=== PATIENT | female | born 1925 | race Caucasian/White ===

== ENCOUNTER → 2017-01-03 | Outpatient (CLI) | payer OTHER, BC ==
[~2017-01-03] MED LIST: ASCA500 PO; ASCO500T16 PO; ASPI81TA28 PO; ATEN-173 PO; B-COTAB18 PO; BNC40 PO; BROM0.07 OPB; BROM0.07 OPR; CALC-393 PO; CALCTAB5 PO; CHOL1000 PO; ELQ25 PO; FURO20TA PO; HYDR12.55 PO; HYDR12.56 PO; LEVA1.255 INH; LEVO-18 PO; LSX/40 PO; LSX40 PO; LVQ750 PO; LXP10 PO; MULT-663 PO; OMEG10007 PO; OMEG120013 PO; OXGN; POLYSOL OPL; POTA10CA28 PO; POTA10TA30 PO; PRED10TA PO; PRED1SUS17 OPR; PRED1SUS3 OPR; RIVA1.5T PO; RIVA1TAB PO; SODI2SOL; SODI5OIN4 OPR; SODI5SOL4 OPR; TIMO0.2527 OPB; TMPXEOPS OPB; TPRSR100 PO; TPRSR50 PO; TRAV0.00 OPL; VTMD400 PO
--- NOTE | 2017-01-03 15:03 | MAMMOGRAPHY REPORT ---
UNILATERAL RIGHT DIGITAL DIAGNOSTIC MAMMOGRAM WITH CAD: 01/03/2017 CLINICAL HISTORY: Short interval follow-up of right breast calcifications. TECHNIQUE: Current study was also evaluated with a Computer Aided Detection (CAD) system. Right CC and MLO views were obtained. COMPARISON: Comparison is made to exams dated: 08/07/2016 mammogram, 07/12/2016 mammogram, 05/24/2015 mammogram, 03/16/2014 mammogram, 03/05/2013 mammogram, and 03/04/2012 mammogram - [facility]. BREAST COMPOSITION: The tissue of the right breast is heterogeneously dense, which may obscure smal l masses. FINDINGS: The exam is somewhat limited due to difficulties with patient positioning due to her kypho scoliosis. Again noted is a small 4 mm cluster of amorphous calcifications in the right upper inner quadrant. The calcifications are not significantly changed compared to the 07/12/2016 exam, and ar e therefore probably benign given 6 months of stability. There remainder of the right breast is stable compared to prior exams, without suspicious masses, ca lcifications, or areas of architectural distortion noted. Status post left mastectomy. IMPRESSION: ACR-BI-RADS CATEGORY 3: PROBABLY BENIGN Small cluster of calcifications in the right upper inner quadrant is stable compared to the June 2016 exam, and is probably benign. Recommend follow-up diagnostic mammograms of the right breast in 6 months to confirm longer stability. The patient has been verbally notified of the results. Approximately 10% of breast cancers are not detected with mammography. A negative mammographic repor t should not delay biopsy if a clinically suggestive mass is present. Elli Hyatt M.D. ah/:01/03/2017 14:34:13 Attending Technologist: Pranav Minor RT(R)(M), [facility] [employer] Analyst: Imani Patel RT(R)(M), [facility] letter sent: Follow Up Recommended 3 BI-RADS Code: ACR-BI-RADS Category 3: Probably Benign
== END ==
LOC: C.MAMM 14:06
PROVIDERS: ATTEND Family Medicine
DX: Z09 Encounter for follow-up examination after completed treatment for conditions other than malignant neoplasm (principal); R92.1 Mammographic calcification found on diagnostic imaging of breast

== ENCOUNTER 2017-02-09 15:26 | Inpatient (IN) | payer OTHER, BC ==
[~2017-02-09] VITALS: Ht 154.9 cm; Wt 46.9 kg
[~2017-02-09 15:26] MED LIST changes: -ASCA500 PO; -B-COTAB18 PO; -BROM0.07 OPB; -CALC-393 PO; -ELQ25 PO; -FURO20TA PO; -HYDR12.55 PO; -LEVA1.255 INH; -LEVO-18 PO; -LSX/40 PO; -LSX40 PO; -LVQ750 PO; -LXP10 PO; -MULT-663 PO; -OMEG120013 PO; -OXGN; -POLYSOL OPL; -POTA10CA28 PO; -POTA10TA30 PO; -PRED10TA PO; -PRED1SUS17 OPR; -PRED1SUS3 OPR; -RIVA1.5T PO; -RIVA1TAB PO; -SODI2SOL; -SODI5SOL4 OPR; -TMPXEOPS OPB; -TPRSR100 PO; -TPRSR50 PO; -TRAV0.00 OPL; -VTMD400 PO
[2017-02-09 16:06] LABS: BASO % 0.4 %; BASO ABS # 0.03 K/uL (0-0.2); COMPLETE YES; EOS % 1.2 %; HEMATOCRIT 36.7 % (37-47); IG% 0.1 %; LYMPH % 19.1 %; LYMPH ABS # 1.44 K/uL (1.2-3.4); MEAN CELL VOLUME 93.1 fL (80-100); MEAN CORPUSCULAR HGB CONC 33.2 g/dl (32-36); MEAN PLATELET VOLUME 9.9 fL (7.4-10.4); MONO % 9.9 %; NEUT % 69.3 %; PLATELET COUNT 218 K/uL (130-400); RED BLOOD COUNT 3.94 M/uL (4.2-5.4); WHITE BLOOD COUNT 7.55 K/uL (4.8-10.8)
[2017-02-09 16:16] LABS: INR 1.1 (0.9-1.1); PROTHROMBIN TIME (PATIENT) 11.9 SECONDS (9.0-12.0)
[2017-02-09 16:23] LABS: ALT/SGPT 45 U/L (12-78); AST/SGOT 48 U/L (15-37); BLOOD UREA NITROGEN 17 mg/dl (7-18); BUN/CREATININE RATIO 25.4 (10-20); CALCIUM 9.2 mg/dl (8.5-10.1); CARBON DIOXIDE 32 mmol/L (21-32); CHLORIDE 98 mmol/L (98-107); CREATININE 0.67 mg/dl (0.60-1.20); GLUCOSE 112 mg/dl (70-99); POTASSIUM 3.8 mmol/L (3.5-5.1); SODIUM 137 mmol/L (136-145)
--- NOTE | 2017-02-09 16:23 | DIAGNOSTIC IMAGING REPORT ---
Venous Doppler right leg RIGHT VENOUS DOPP LOWER EXT UNILAT CLINICAL HISTORY: EVALUATE FOR DVT Right pain. Edema. TECHNIQUE: Venous Doppler COMPARISON STUDY: None FINDINGS: Normal study IMPRESSION: Normal study Electronically signed by: Jay Zambrano M.D. 02/09/2017 4:22 PM Dictated Date/Time: 02/09/2017 4:22 PM
[2017-02-09 16:28] LABS: ALB/GLOB RATIO 0.8 (0.9-2); ALKALINE PHOSPHATASE 116 U/L (45-117)
[2017-02-09] MEDS ORDERED: FUROSEMIDE 20 MG TAB PO STA (16:36)
[2017-02-09] MEDS ORDERED: FUROSEMIDE 40 MG/4 ML VIAL IV STA (16:48)
[2017-02-09] MEDS ORDERED: HYDR12.55 PO (16:53)
[2017-02-09] MEDS ORDERED: SODI2SOL (16:53)
[2017-02-09] MEDS ORDERED: CALC-393 PO (16:53)
[2017-02-09] MEDS ORDERED: TRAV0.00 OPL (16:54)
[2017-02-09] MEDS ORDERED: TMPXEOPS OPB (16:54)
[2017-02-09] MEDS ORDERED: PRED1SUS17 OPR (16:54)
--- NOTE | 2017-02-09 17:03 | DIAGNOSTIC IMAGING REPORT ---
CHEST ONE VIEW PORTABLE CLINICAL HISTORY: SOB dyspnea COMPARISON STUDY: CT chest 10/06/2007 FINDINGS: Fibrotic change throughout both hemithoraces. Mild cardiomegaly. Diaphragms are smooth. Calcifications are sharp. IMPRESSION: Interstitial and chronic fibrotic change throughout both hemithoraces. Mild stable cardiomegaly. Electronically signed by: Jay Zambrano M.D. 02/09/2017 5:02 PM Dictated Date/Time: 02/09/2017 5:01 PM
--- NOTE | 2017-02-09 18:07 | EMERGENCY ROOM VISIT NOTE ---
History Report prepared by Taylor: Cabrera Smith Under the Supervision of: Dr. Marek Pruett M.D. First contact with patient: 15:39 Chief Complaint: EDEMA TO EXTREMITY Stated Complaint: FLUID IN LEGS History of Present Illness The patient is a 89 year old female who presents to the Emergency Room with complaints of bilateral leg edema that began yesterday. She is not in any pain at the moment. Today, she was at a [facility] clinic when her PCP referred her to the ER for a possible blood clot in her lower extremity. She has had bilateral leg edema in the past, but not this severe. She is currently taking water pills, and she did not miss any dosages. Patient denies LOC, headache, fevers, chills, diaphoresis, visual changes, neck pain, chest pain, breathing difficulties, nausea, vomiting, abdominal pain, back pain, melena, hematochezia , urinary symptoms, numbness, weakness, lymphadenopathy, rash, or other complaints. She has bloating in her abdomen and nausea. Source of History: patient Onset: yesterday Position: leg (bilateral) Symptom Intensity: moderate Quality: other (Edema) Timing: constant Associated Symptoms: + abdominal pain (Bloating), + nausea Review of Systems See HPI for pertinent positives and negatives. A total of ten systems were reviewed and were otherwise negative. Past Medical & Surgical Medical Problems: (1) CHF (congestive heart failure) (2) Hypertension (3) MVP (mitral valve prolapse) Family History Hypertension Social History Smoking Status: Former Smoker Alcohol Use: none Drug Use: none Marital Status: Housing Status: lives with family Occupation Status: retired Current/Historical Medications Scheduled Ascorbic Acid (Ascorbic Acid), 500 MG PO DAILY Aspirin (Aspirin Ec), 81 MG PO DAILY Atenolol (Tenormin), 25 MG PO TID Bromfenac Sodium (Ophth) (Prolensa), 1 DROP OPR DAILY Calcium Carbonate (Calcium), 600 MG PO DAILY Cholecalciferol (Vitamin D3), 1,000 UNITS PO DAILY Fish Oil ([place]-3), 1,200 MG PO DAILY Hydrochlorothiazide (Hydrochlorothiazide), 2 TAB PO DAILY Olmesartan Medoxomil (Benicar), 1 TAB PO DAILY Prednisolone Acetate (Ophth) (Prednisolone Acetate), 1 DROP OPR BID Sodium Chloride Oph (Michelle 128 Oph), 1 APPLN OPR QID Timolol Maleate (Timolol Gfs 0.5% (Generic For Timoptic-Xe)), 1 DROP OPB BID Scheduled PRN Travoprost (Travatan Z), 1 DROPS OPL HS PRN for Pain Miscellaneous Medications Sodium Chloride Hypertonic (Michelle 128) Allergies Coded Allergies: Penicillins (Verified Allergy, Unknown, 05/20/16) Physical Exam Vital Signs Date Time Temp Pulse Resp B/P Pulse Ox O2 Delivery O2 Flow Rate FiO2 02/09/17 17:33 90 22 156/95 96 Nasal Cannula 2.0 02/09/17 16:57 80 02/09/17 16:56 93 Nasal Cannula 3.0 02/09/17 16:36 82 18 119/81 84 Room Air 02/09/17 15:58 Room Air 02/09/17 15:29 36.4 85 22 146/96 Room Air Physical Exam GENERAL: Awake, alert, well-appearing, in no distress HENT: Normocephalic, atraumatic. Oropharynx unremarkable. EYES: Normal conjunctiva. Sclera non-icteric. NECK: Supple. No nuchal rigidity. FROM. No JVD. RESPIRATORY: A few crackles at the bases, otherwise clear bilaterally. CARDIAC: Regular rate, normal rhythm. Extremities warm and well perfused. Pulses equal. ABDOMEN: Soft, non-distended. No tenderness to palpation. No rebound or guarding. No masses. RECTAL: Deferred. MUSCULOSKELETAL: Chest examination reveals no tenderness. The back is kyphotic on inspection. There is no CVA tenderness to palpation. No joint edema. LOWER EXTREMITIES: Right calf is slightly bigger than left. No tenderness. 2+ edema on the left and 3+ edema on the right. No discoloration. NEURO: Normal sensorium. No sensory or motor deficits noted. SKIN: No rash or jaundice noted. Medical Decision & Procedures ER Provider Diagnostic Interpretation: Radiology results as stated below per my review and radiologist interpretation: Venous Doppler right leg RIGHT VENOUS DOPP LOWER EXT UNILAT CLINICAL HISTORY: EVALUATE FOR DVT Right pain. Edema. TECHNIQUE: Venous Doppler COMPARISON STUDY: None FINDINGS: Normal study IMPRESSION: Normal study. Electronically signed by: Jay Zambrano M.D. 02/09/2017 4:22 PM Dictated Date/Time: 02/09/2017 4:22 PM CHEST ONE VIEW PORTABLE CLINICAL HISTORY: SOB dyspnea COMPARISON STUDY: CT chest 10/06/2007 FINDINGS: Fibrotic change throughout both hemithoraces. Mild cardiomegaly. Diaphragms are smooth. Calcifications are sharp. IMPRESSION: Interstitial and chronic fibrotic change throughout both hemithoraces. Mild stable cardiomegaly. Electronically signed by: Jay Zambrano M.D. 02/09/2017 5:02 PM Dictated Date/Time: 02/09/2017 5:01 PM Laboratory Results 02/09/17 15:50 Red Blood Count 3.94, Mean Corpuscular Volume 93.1, Mean Corpuscular Hemoglobin 31.0, Mean Corpuscular Hemoglobin Concent 33.2, Mean Platelet Volume 9.9, Neutrophils (%) (Auto) 69.3, Lymphocytes (%) (Auto) 19.1, Monocytes (%) (Auto) 9.9, Eosinophils (%) (Auto) 1.2, Basophils (%) (Auto) 0.4, Neutrophils # (Auto) 5.23, Lymphocytes # (Auto) 1.44, Monocytes # (Auto) 0.75, Eosinophils # (Auto) 0.09, Basophils # (Auto) 0.03 02/09/17 15:50 Test 02/09/17 15:50 White Blood Count 7.55 K/uL (4.8-10.8) Red Blood Count 3.94 M/uL (4.2-5.4) Hemoglobin 12.2 g/dL (12.0-16.0) Hematocrit 36.7 % (37-47) Mean Corpuscular Volume 93.1 fL (80-100) Mean Corpuscular Hemoglobin 31.0 pg (25-34) Mean Corpuscular Hemoglobin Concent 33.2 g/dl (32-36) Platelet Count 218 K/uL (130-400) Mean Platelet Volume 9.9 fL (7.4-10.4) Neutrophils (%) (Auto) 69.3 % Lymphocytes (%) (Auto) 19.1 % Monocytes (%) (Auto) 9.9 % Eosinophils (%) (Auto) 1.2 % Basophils (%) (Auto) 0.4 % Neutrophils # (Auto) 5.23 K/uL (1.4-6.5) Lymphocytes # (Auto) 1.44 K/uL (1.2-3.4) Monocytes # (Auto) 0.75 K/uL (0.11-0.59) Eosinophils # (Auto) 0.09 K/uL (0-0.5) Basophils # (Auto) 0.03 K/uL (0-0.2) RDW Standard Deviation 51.4 fL (36.4-46.3) RDW Coefficient of Variation 15.1 % (11.5-14.5) Immature Granulocyte % (Auto) 0.1 % Immature Granulocyte # (Auto) 0.01 K/uL (0.00-0.02) Prothrombin Time 11.9 SECONDS (9.0-12.0) Prothromb Time International Ratio 1.1 (0.9-1.1) Activated Partial Thromboplast Time 25.0 SECONDS (21.0-31.0) Partial Thromboplastin Ratio 1.0 Anion Gap 7.0 mmol/L (3-11) Est Creatinine Clear Calc Drug Dose 42.9 ml/min Estimated GFR () 90.3 Estimated GFR (Non- 77.9 BUN/Creatinine Ratio 25.4 (10-20) Calcium Level 9.2 mg/dl (8.5-10.1) Total Bilirubin 2.1 mg/dl (0.2-1) Aspartate Amino Transf (AST/SGOT) 48 U/L (15-37) Alanine Aminotransferase (ALT/SGPT) 45 U/L (12-78) Alkaline Phosphatase 116 U/L (45-117) Troponin I < 0.015 ng/ml (0-0.045) Pro-B-Type Natriuretic Peptide 3611 pg/ml (0-1800) Total Protein 7.4 gm/dl (6.4-8.2) Albumin 3.3 gm/dl (3.4-5.0) Globulin 4.1 gm/dl (2.5-4.0) Albumin/Globulin Ratio 0.8 (0.9-2) Laboratory results reviewed by me Medications Administered Medications (Trade) Dose Ordered Sig/Mainor Route Start Time Stop Time Status Last Admin Dose Admin Furosemide (Lasix Inj) 40 mg NOW STAT IV 02/09/17 16:48 02/09/17 16:50 DC 02/09/17 17:07 40 MG ED Course 1539: The patient was evaluated in room C3. A complete history and physical exam was performed. 1636: Ordered Lasix Tab 40 mg PO 1648: Ordered Lasix Inj 40 mg IV 1650: I was informed that the patient is now hypoxic. We will be paging for further management. 1724: Upon reexamination, the patient was resting. I discussed the test results and treatment plan with her. The patient will be evaluated by Cathie Oviedo, for further management. Medical Decision Triage Nursing notes reviewed. The patient's presentation and history were concerning for leg swelling. Etiologies such as DVT, joint effusion, infection, trauma, muscular, lymphedema , idiopathic, CHF, as well as others were entertained. The patient had blood work and imaging ordered. She had no DVT. The patient has an elevated BNP. The patient had unremarkable CBC and chemistry panel. She was found to have hypoxia and this responded well to nasal cannula oxygen. Initially she was going to be placed on oral Lasix however because of the hypoxia and oxygen requirement she was given 40 mg of IV Lasix. The patient appears to be dealing with CHF. She will need further evaluation and management in the hospital. I did discuss this with the patient and family. [facility] The patient was evaluated in the Emergency Room for further management. The chart was completed utilizing [employer] Speech voice recognition software. Grammatical errors, random word insertions, pronoun errors, and incomplete sentences are an occasional consequence of this system due to software limitations, ambient noise, and hardware issues. Any formal questions or concerns about the content, text, or information contained within the body of this dictation should be directly addressed to the physician for clarification. Consults Time Called: 1700 Consulting Physician: Cathie Shields Ivelisse Returned Call: 1724 She will be evaluating the patient for further management and care. Impression Primary Impression: CHF (congestive heart failure) Additional Impressions: Lower extremity edema Hypoxia Scribe Attestation The scribe's documentation has been prepared under my direction and personally reviewed by me in its entirety. I confirm that the note above accurately reflects all work, treatment, procedures, and medical decision making performed by me. Departure Information Dispostion Being Evaluated By Hospitalist Referrals Maya Cottrell DO (PCP) Patient Instructions [facility] Problem Qualifiers
[2017-02-09] MEDS ORDERED: ONDANSETRON INJ 2 MG/ML 2 ML VIAL IV PRN (18:15)
[2017-02-09] MEDS ORDERED: ACETAMINOPHEN 325 MG TAB PO PRN (18:15)
--- NOTE | 2017-02-09 18:39 | History and Physical ---
History & Physical Date & Time of Service: February 09, 2017 at 18:14 Chief Complaint: Fluid In Legs Primary Care Physician: Maya Cottrell DO History of Present Illness Source: patient, clinic records, hospital records Patient seen and examined. 89 year old female with PMHx of HTN, GERD, SVT, Mitral Regurgitation, peripheral edema, and h/o breast CA presents to the ED complaining of worsening leg edema x 1 week. Patient reports she chronically has some edema to her BLE, but it has recently gotten worsen. She saw Dr. Flores at [facility] weekend coverage today and he was concerned that the RLE was 4mm larger than the left. With her history of breast CA he was concerned for DVT and referred patient to the ED for further evaluation. Patient also reports a cough with some phlegm. She states she feels a little bloated and has had some nausea off and on. She states she chronically has some hear "fluttering " at night and that is what she takes atenolol for. She denies fevers, chills, chest pain, SOB, vomiting, diarrhea, dysuria, calf pain . She follows with Manuel Marin of cardiology. She does not use oxygen at home. She has never been diagnosed with CHF. In the ED patient is hypoxic on RA. RLE dopper US is negative for DVT. BNP is 3611. CXR is without acute changes. She is placed on supplemental oxygen and received 40mg IV lasix. She is resting comfortably. She will be admitted for further workup and treatment. Past Medical/Surgical History Chronic and Reloved Medical Problems: (1) Breast CA, history of Status: Chronic (3) GERD (gastroesophageal reflux disease) Status: Chronic (4) Glaucoma Status: Chronic (5) Hypertension Status: Chronic (6) Mitral regurgitation Status: Chronic (7) MVP (mitral valve prolapse) Status: Chronic (8) SVT (supraventricular tachycardia) Status: Chronic Surgical Problems: (1) H/O elbow surgery Status: Chronic (2) H/O mastectomy Status: Chronic (3) History of trabeculectomy Status: Chronic Family History Hypertension Social History Smoking Status: Former Smoker Alcohol Use: none Drug Use: none Marital Status: Housing status: lives with family Occupational Status: retired Multi-Drug Resistant Organisms History of MDRO: No Allergies Coded Allergies: Penicillins (Verified Allergy, Unknown, 05/20/16) Home Medications Scheduled Ascorbic Acid (Ascorbic Acid), 500 MG PO DAILY Aspirin (Aspirin Ec), 81 MG PO DAILY Atenolol (Tenormin), 25 MG PO TID Bromfenac Sodium (Ophth) (Prolensa), 1 DROP OPR DAILY Calcium Carbonate (Calcium), 600 MG PO DAILY Cholecalciferol (Vitamin D3), 1,000 UNITS PO DAILY Fish Oil ([place]-3), 1,200 MG PO DAILY Hydrochlorothiazide (Hydrochlorothiazide), 2 TAB PO DAILY Olmesartan Medoxomil (Benicar), 1 TAB PO DAILY Prednisolone Acetate (Ophth) (Prednisolone Acetate), 1 DROP OPR QID Sodium Chloride Oph (Michelle 128 Oph), 1 APPLN OPR QID Timolol Maleate (Timolol Gfs 0.5% (Generic For Timoptic-Xe)), 1 DROP OPB BID Scheduled PRN Travoprost (Travatan Z), 1 DROPS OPL HS PRN for Pain Miscellaneous Medications Sodium Chloride Hypertonic (Michelle 128) Review of Systems Constitutional: No chills, No fever, No weakness Eyes: No worsening of vision ENT: No nasal symptoms Respiratory: + cough, No shortness of breath Cardiovascular: + edema, + palpitations, No chest pain Abdomen: + nausea, No constipation, No diarrhea, No pain, No vomiting Musculoskeletal: + swelling, No calf pain Genitourinary - Female: No dysuria Neurologic: No numbness/tingling, No vertigo Psychiatric: No anxiety Endocrine: No excessive thirst, No fatigue Hematologic / Lymphatic: No abnormal bleeding/bruising, No clotting problems Integumentary: No itch, No rash Allergic / Immunologic: No environmental allergies Physical Exam Vital Signs Date Time Temp Pulse Resp B/P Pulse Ox O2 Delivery O2 Flow Rate FiO2 02/09/17 17:33 90 22 156/95 96 Nasal Cannula 2.0 02/09/17 16:57 80 02/09/17 16:56 93 Nasal Cannula 3.0 02/09/17 16:36 82 18 119/81 84 Room Air 02/09/17 15:58 Room Air 02/09/17 15:29 36.4 85 22 146/96 Room Air General Appearance: + pertinent finding (Very pleasant elderly frail appearing 89 year old female lying in bed in NAD ) Head: normocephalic, atraumatic Eyes: PERRL, EOMI, sclerae normal ENT: pharynx normal, + pertinent finding (hard of hearing ) Neck: supple, no JVD Respiratory/Chest: chest non-tender, lungs clear, normal breath sounds, no respiratory distress, no accessory muscle use Cardiovascular: regular rate, rhythm, no gallop, no JVD, normal peripheral pulses, + systolic murmur Abdomen/GI: normal bowel sounds, non tender, soft Back: normal inspection, no muscle spasm Extremities/Musculoskelatal: no calf tenderness, normal capillary refill, + pedal edema (+1, RLE slightly > LLE ) Neurologic/Psych: alert, oriented x 3 Skin: normal color, warm/dry, no rash Lymphatic: no adenopathy Diagnostics Laboratory Results Results Past 24 Hours Test 02/09/17 15:50 Range/Units White Blood Count 7.55 4.8-10.8 K/uL Red Blood Count 3.94 4.2-5.4 M/uL Hemoglobin 12.2 12.0-16.0 g/dL Hematocrit 36.7 37-47 % Mean Corpuscular Volume 93.1 80-100 fL Mean Corpuscular Hemoglobin 31.0 25-34 pg Mean Corpuscular Hemoglobin Concent 33.2 32-36 g/dl Platelet Count 218 130-400 K/uL Mean Platelet Volume 9.9 7.4-10.4 fL Neutrophils (%) (Auto) 69.3 % Lymphocytes (%) (Auto) 19.1 % Monocytes (%) (Auto) 9.9 % Eosinophils (%) (Auto) 1.2 % Basophils (%) (Auto) 0.4 % Neutrophils # (Auto) 5.23 1.4-6.5 K/uL Lymphocytes # (Auto) 1.44 1.2-3.4 K/uL Monocytes # (Auto) 0.75 0.11-0.59 K/uL Eosinophils # (Auto) 0.09 0-0.5 K/uL Basophils # (Auto) 0.03 0-0.2 K/uL RDW Standard Deviation 51.4 36.4-46.3 fL RDW Coefficient of Variation 15.1 11.5-14.5 % Immature Granulocyte % (Auto) 0.1 % Immature Granulocyte # (Auto) 0.01 0.00-0.02 K/uL Prothrombin Time 11.9 9.0-12.0 SECONDS Prothromb Time International Ratio 1.1 0.9-1.1 Activated Partial Thromboplast Time 25.0 21.0-31.0 SECONDS Partial Thromboplastin Ratio 1.0 Sodium Level 137 136-145 mmol/L Potassium Level 3.8 3.5-5.1 mmol/L Chloride Level 98 98-107 mmol/L Carbon Dioxide Level 32 21-32 mmol/L Anion Gap 7.0 3-11 mmol/L Blood Urea Nitrogen 17 7-18 mg/dl Creatinine 0.67 0.60-1.20 mg/dl Est Creatinine Clear Calc Drug Dose 42.9 ml/min Estimated GFR () 90.3 Estimated GFR (Non- 77.9 BUN/Creatinine Ratio 25.4 10-20 Random Glucose 112 70-99 mg/dl Calcium Level 9.2 8.5-10.1 mg/dl Total Bilirubin 2.1 0.2-1 mg/dl Aspartate Amino Transf (AST/SGOT) 48 15-37 U/L Alanine Aminotransferase (ALT/SGPT) 45 12-78 U/L Alkaline Phosphatase 116 45-117 U/L Troponin I < 0.015 0-0.045 ng/ml Pro-B-Type Natriuretic Peptide 3611 0-1800 pg/ml Total Protein 7.4 6.4-8.2 gm/dl Albumin 3.3 3.4-5.0 gm/dl Globulin 4.1 2.5-4.0 gm/dl Albumin/Globulin Ratio 0.8 0.9-2 Diagnostic Radiology CXR Per radiologist read: IMPRESSION: Interstitial and chronic fibrotic change throughout both hemithoraces. Mild stable cardiomegaly. DOPPLER US RLE Per radiologist read: IMPRESSION: Normal study EKG Afib 95 BPM, QTc 409 Impression Assessment and Plan 89 year old female presents to the ED with asymmetric peripheral edema from outpatient office for concerns of possible DVT incidentally found to be hypoxic ACUTE HYPOXIA -Admit to tele -? cause possibly CHF BNP 3600 however CXR without overt signs of failure, r/o PE, ACS -Check Ddimer, if elevated will need CTA chest and LLE doppler US -Received 40mg IV Lasix in ED, will hold off on additional at this time until PE is r/o -Update echo -Serial Sheila -CBC, PRP, Mg in AM -AHA low sodium diet LOWER EXTREMITY EDEMA -R>L -RLE Doppler US negative for DVT -? cause consider CHF versus DVT -check Ddimer -if elevated will check CTA chest and LLE doppler -Receive 40mg IV Lasix in ED LIKELY NEW ONSET AFIB -EKG with Afib, last EKG to compare was 2008 with NSR. Reports heart fluttering -continue Atenolol -monitor in tele -cardiology consult placed H/O SVT -follows with Kip Tomas -Continue BB HTN -stable -continue BB, HCTZ, Benicar -monitor in tele H/O MITRAL REGURGITATION H/O BREAST CA -1997, s/p mastectomy GLAUCOMA -continue eye drops DVT PROPHYLAXIS: Sq Lovenox CODE STATUS: FULL CODE per my discussion with the patient DISPO:In my clinical judgment this beneficiary meets acute admission criteria, established by [facility], that includes being hospitalized through two midnights. Patient seen in collaboration with Dr. Harrison VTE Prophylaxis VTE Risk Assessment Done? Y/N: Yes Risk Level: Moderate Given or contraindicated: Enoxaparin (Lovenox)SQ Note ATTENDING ADDENDUM Record reviewed. Patient interviewed and examined. Care coordinated with Cathie Jurado PA-C. Please refer to her documentation for patient's history. Briefly, 89 YO female with history of mitral valve prolapse, SVT, hypertension, and other problems as noted. Has developed progressive lower extremity edema over past 1-2 weeks. Seen in clinic and referred to ED for venous duplex of lower extremities. Noted to be hypoxic with O2 sat of 84 % on RA. Has been experiencing some dyspnea on exertion, no chest pain. EXAM: General- no acute distress VS- as noted HEENT- hard of hearing Neck- + JVD Lungs- few bibasilar rales Heart- irregular, II/IV systolic murmur apex, no gallop appreciated Abdomen- + BS, soft, nontender Extremities- 1-2 + pretibial edema, no calf tenderness Neuro- alert DATA: Pro-BNP = 3611. Troponin < 0.015. D-Dimer = 1780. Other lab studies as noted. CXR- cardiomegaly, chronic interstitial changes. CTA chest- negative for pulmonary embolism; multifocal small parenchymal infiltrates, mild peribronchial prominence, moderate cardiomegaly. Venous duplex lower extremities neg for DVT. EKG performed at 17:39 reviewed and demonstrated AF at 95 / minute, slight ST depression lateral precordial leads. Atrial fib new compared to 2009. . ASSESSMENT AND PLAN: HYPOXIA May be secondary to interstitial lung disease, CHF, or combination of the two. No apparent symptoms of respiratory tract infection. Pulmonary embolism ruled out by CTA. Titrate supplemental O2. POSSIBLE CHF Experiencing dyspnea and dependent edema. BNP elevated. CXR shows cardiomegaly, chronic interstitial disease. May have left sided CHF. May have right sided CHF due to underlying pulmonary disease. Check echo. Consult Cardiology- followed by Manuel Marin PA-C with [facility]. ATRIAL FIBRILLATION Available records note history of SVT. Now in AF, rate controlled. Continue atenolol. Need to clarify whether AF is old or new. If old, need to clarify if anticoagulation has been considered. Consult Cardiology. HYPOXIA / INTERSTITIAL LUNG DISEASE Consult Pulmonary Medicine. HYPERTENSION Continue HCTZ, atenolol and olmesartan. VTE PROPHYLAXIS SQ enoxaparin. Ambulate. Please refer to BO Jurado's documentation for discussion of other issues. Marek Harrison MD .
[2017-02-09 18:47] VITALS: BP 14/75; PULSE 90; TEMP 36.4; O2SAT 93; Ht 154.9 cm; Wt 46.9 kg
--- NOTE | 2017-02-09 19:26 | DIAGNOSTIC IMAGING REPORT ---
Venous Doppler left leg LEFT VENOUS DOPP LOWER EXT UNILAT CLINICAL HISTORY: elevated ddi елена, edema pain. Edema. TECHNIQUE: Venous Doppler COMPARISON STUDY: None FINDINGS: Normal study IMPRESSION: Normal study Electronically signed by: Jay Zambrano M.D. 02/09/2017 7:24 PM Dictated Date/Time: 02/09/2017 7:24 PM
[2017-02-09] MEDS: PrednisoLONE ACET 1% OP SUSP 5 ML BTL OPR SCH (20:37)
[2017-02-09] MEDS: TIMOLOL GFS 0.5% OPH SOLN 74 DROPS/5 ML BTL OPB SCH (20:37)
[2017-02-09] MEDS: SODIUM CHLORIDE 5% (MURO) OP OINT 3.5 GM TUBE OPR SCH (20:37)
[2017-02-09] MEDS ORDERED: OPTIRAY 320 IV PRN (20:45)
--- NOTE | 2017-02-09 20:49 | DIAGNOSTIC IMAGING REPORT ---
CHEST CTA for PULMONARY ARTERIES CT DOSE: 210.36 mGy.cm HISTORY: Chest pain dyspnea TECHNIQUE: Multiaxial CT images of the chest were performed following the intravenous administration of contrast to evaluate the pulmonary arteries. Maximal intensity projection images were also obtained. COMPARISON STUDY: 10/06/2007. FINDINGS: slight increase in distention of the aortic root to a current maximum dimension of 4.1 cm. This is increased from a prior dimension of 3.9 cm. Enhancement characteristics of the pulmonary arterial vasculature is grossly unremarkable. The vertebral vessels are not well seen. There is no evidence for main or central pulmonary embolus. Patchy parenchymal infiltrative changes are identified at multiple sites within the right upper lobe. Less prominent findings are seen superior segment of the right as well as left lower lobe region area midlung parenchymal infiltrative changes are noted bilaterally with additional right basilar parenchymal infiltrative change. Heart remains moderately enlarged. IMPRESSION: 1. No evidence for pulmonary embolus. 2. Multifocal small parenchymal infiltrates bilaterally. 3. Mild peribronchial prominence and to a minimal degree mucous plugging bilaterally. 4. Dilatation of the aortic root to 4.1 cm. 5. Moderate cardiac megaly. Electronically signed by: Jay Zambrano M.D. 02/09/2017 8:47 PM Dictated Date/Time: 02/09/2017 8:42 PM
[2017-02-09] MEDS ORDERED: TRAVOPROST Z 0.004% OPH SOLN 2.5 ML BTL OPL PRN (21:00)
[2017-02-09] MEDS ORDERED: ENOXAPARIN 30 MG/0.3 ML SYR SC SCH (21:00)
[2017-02-10] VITALS (7 sets, daily range): BP systolic 89–113; BP diastolic 45–69; PULSE 71–84; TEMP 36.4–37; O2SAT 90–98
[2017-02-10 07:30] LABS: HEMATOCRIT 33.7 % (37-47); MEAN CELL VOLUME 92.1 fL (80-100); MEAN CORPUSCULAR HEMOGLOBIN 31.1 pg (25-34); MEAN CORPUSCULAR HGB CONC 33.8 g/dl (32-36); MEAN PLATELET VOLUME 9.9 fL (7.4-10.4); PLATELET COUNT 199 K/uL (130-400); RED BLOOD COUNT 3.66 M/uL (4.2-5.4)
[2017-02-10] MEDS: TIMOLOL GFS 0.5% OPH SOLN 74 DROPS/5 ML BTL OPB SCH ×2 (07:35→20:40)
[2017-02-10] MEDS: SODIUM CHLORIDE 5% (MURO) OP OINT 3.5 GM TUBE OPR SCH ×2 (07:37→13:24)
[2017-02-10] MEDS: PrednisoLONE ACET 1% OP SUSP 5 ML BTL OPR SCH ×3 (07:37→20:41)
[2017-02-10] MEDS: OLMESARTAN MEDOXOMIL 40 MG TAB PO SCH (07:41)
[2017-02-10] MEDS: ASPIRIN 81 MG ECTAB PO SCH (07:41)
[2017-02-10] MEDS: ASCORBIC ACID 500 MG TAB PO SCH (07:41)
[2017-02-10] MEDS: HYDROCHLOROTHIAZIDE 25 MG TAB PO SCH (07:42)
[2017-02-10] MEDS: OMEGA-3 (PURIFIED FISH OIL) 1 GM CAP PO SCH ×3 (07:42→07:54)
[2017-02-10] MEDS: CHOLECALCIFEROL 1000 INTER.UNIT TAB PO SCH (07:42)
[2017-02-10 07:57] LABS: BUN/CREATININE RATIO 26.7 (10-20); CALCIUM 8.6 mg/dl (8.5-10.1); CREATININE 0.63 mg/dl (0.60-1.20); POTASSIUM 3.3 mmol/L (3.5-5.1)
[2017-02-10] MEDS ORDERED: NON-FORMULARY MEDICATION (Calcium Carbonate (Calcium) 600 MG) PO SCH (09:00)
[2017-02-10] MEDS ORDERED: FUROSEMIDE INJ 40 MG in SYRINGE 0 ML IV SCH (09:00)
[2017-02-10] MEDS ORDERED: POTASSIUM CHLORIDE 20 MEQ TABCR PO ONE (09:15)
--- NOTE | 2017-02-10 09:43 | Cardiology Consultation ---
Cardiology Consultation Date of Consultation: February 10, 2017. Requesting Physician: Dr. Jurado Reason for Consultation: Atrial fibrillation, congestive heart failure Pt evaluation today including: conversation w/ patient, physical exam, lab review, review of studies, review of inpatient medication list, conversation w/ attending History of Present Illness This is an 89-year-old woman who has a history of paroxysmal supraventricular tachycardia treated with atenolol (that description predated 2002 and I don't see electrocardiograms so I don't know the specific mechanism), hypertension, mitral valve prolapse and chronic peripheral edema. She has been evaluated in the office with ongoing difficulty with bilateral edema. She is on a diuretic. She has been advised to wear compressive stockings and her edema improved with that treatment. She has also had a history of breast cancer. She presented to the emergency room on 02/09/2017 with complaints of worsening peripheral edema. She feels that this has been worsening over the last week and additionally the right lower extremity was more swollen than the left. In the emergency room she was noted to be hypoxic, Doppler studies were negative for DVT, CT scan was negative for pulmonary embolism and her BNP was elevated at 3611. She was also observed to be in atrial fibrillation, which had not been identified before to my knowledge. She was therefore admitted. Today she feels well, she is not complaining of shortness of breath (but really was not on admission either even though she was hypoxic) and feels that her edema is improved. Past Medical/Surgical History (1) Hypertension (2) MVP (mitral valve prolapse) (3) Lower extremity edema (4) SVT (supraventricular tachycardia) (5) GERD (gastroesophageal reflux disease) (6) History of breast cancer (7) H/O mastectomy (8) History of trabeculectomy (9) H/O elbow surgery Family History Hypertension Social History Smoking Status: Never Smoker History of Alcohol Use: No Review of Systems Constitutional: No fever, No weakness, No weight loss Respiratory: No cough, No dyspnea on exertion, No shortness of breath, No wheezing Cardiac: + edema, + see HPI, No PND, No chest pain, No orthopnea, No palpitations Abdomen: No GI bleeding, No diarrhea, No nausea, No pain, No vomiting Female : No problem reported Neurologic: No balance problems, No numbness/tingling, No paralysis, No weakness Heme: No abnormal bleeding/bruising, No clotting problems Endo: No fatigue Skin: No problem reported Allergies Coded Allergies: Penicillins (Verified Allergy, Unknown, 05/20/16) Medications Current Inpatient Medications Medications (Trade) Dose Ordered Sig/Mainor Route Start Time Stop Time Status Last Admin Dose Admin Enoxaparin Sodium (Lovenox Inj) 30 mg HS SC 02/09/17 21:00 03/11/17 20:59 02/09/17 20:38 30 MG Acetaminophen (Tylenol Tab) 650 mg Q4H PRN PO 02/09/17 18:15 03/11/17 18:14 Ondansetron HCl (Zofran Inj) 4 mg Q6H PRN IV 02/09/17 18:15 03/11/17 18:14 Ascorbic Acid (Vitamin C Tab) 500 mg DAILY PO 02/10/17 09:00 03/12/17 08:59 02/10/17 07:41 500 MG Aspirin (Ecotrin Tab) 81 mg DAILY PO 02/10/17 09:00 03/12/17 08:59 02/10/17 07:41 81 MG Atenolol (Tenormin Tab) 25 mg TID PO 02/09/17 21:00 03/11/17 20:59 02/10/17 07:43 25 MG Cholecalciferol (Vitamin D Tab) 1,000 inter.unit DAILY PO 02/10/17 09:00 03/12/17 08:59 02/10/17 07:42 1,000 INTER.UNIT Fish Oil ([place]-3 (Purified Fish Oil) Cap) 1 gm DAILY PO 02/10/17 09:00 03/12/17 08:59 Olmesartan (Benicar Tab) 40 mg DAILY PO 02/10/17 09:00 03/12/17 08:59 02/10/17 07:41 40 MG Prednisolone Acetate (Pred Forte 1% Oph Susp) 1 drops QID OPR 02/09/17 21:00 03/11/17 20:59 02/10/17 07:37 1 DROPS Sodium Chloride (Michelle 128 Oph Oint) 1 appln QID OPR 02/09/17 21:00 03/11/17 20:59 02/10/17 07:37 1 APPLN Timolol Maleate (Timoptic-Xe 0.5% Oph Soln) 74 drops BID OPB 02/09/17 21:00 03/11/17 20:59 02/10/17 07:35 74 DROPS Travoprost (Travatan Z) 1 drops HS PRN OPL 02/09/17 21:00 03/11/17 20:59 Miscellaneous Information (Order Awaiting Action) 1 ea QS N/A 02/10/17 00:00 03/12/17 00:00 Hydrochlorothiazide (Hydrochlorothiazide Tab) 25 mg DAILY PO 02/10/17 09:00 03/12/17 08:59 02/10/17 07:42 25 MG Ioversol (Optiray 320) 87 ml UD PRN IV 02/09/17 20:45 02/13/17 20:44 Physical Exam Vital Signs Past 12 Hours Date Time Temp Pulse Resp B/P Pulse Ox O2 Delivery O2 Flow Rate FiO2 02/10/17 08:00 Nasal Cannula 3.0 02/10/17 07:32 37.0 80 18 112/69 95 3.0 02/10/17 04:00 Nasal Cannula 3.0 02/10/17 03:45 36.7 72 18 103/60 93 Nasal Cannula 3.0 02/10/17 00:08 36.7 83 18 112/67 96 Nasal Cannula 3.0 02/10/17 00:00 Nasal Cannula 3.0 Constitutional: General Apperance: heathly-appearing Level of Distress: NAD Psychiatric: Mental Status: active & alert Head: normocephalic Eyes: EOM: EOMI ENMT: normal ENT inspection, hearing grossly normal Neck: supple, no masses Lungs: Respiratory effort: no dyspnea, good air movement Auscultation: breath sounds normal, no wheezing Cardiovascular: Heart Auscultation: no rubs, no gallops, II/ WSM, irregular rate rhythm Peripheral Pulses: Bruits: none appreciated Abdomen: Bowel Sounds: normal Inspection & Palpation: soft, no tenderness, guarding & rebound, no masses Musculoskeletal: normal strength (5/5 throughout) Extremities: no edema Neurologic: Cranial Nerves: grossly intact Sensation: grossly intact Data Laboratory Results: Last 24 Hours Test 02/09/17 15:50 02/09/17 22:02 02/10/17 06:33 White Blood Count 7.55 K/uL 6.80 K/uL Red Blood Count 3.94 M/uL 3.66 M/uL Hemoglobin 12.2 g/dL 11.4 g/dL Hematocrit 36.7 % 33.7 % Mean Corpuscular Volume 93.1 fL 92.1 fL Mean Corpuscular Hemoglobin 31.0 pg 31.1 pg Mean Corpuscular Hemoglobin Concent 33.2 g/dl 33.8 g/dl Platelet Count 218 K/uL 199 K/uL Mean Platelet Volume 9.9 fL 9.9 fL Neutrophils (%) (Auto) 69.3 % Lymphocytes (%) (Auto) 19.1 % Monocytes (%) (Auto) 9.9 % Eosinophils (%) (Auto) 1.2 % Basophils (%) (Auto) 0.4 % Neutrophils # (Auto) 5.23 K/uL Lymphocytes # (Auto) 1.44 K/uL Monocytes # (Auto) 0.75 K/uL Eosinophils # (Auto) 0.09 K/uL Basophils # (Auto) 0.03 K/uL RDW Standard Deviation 51.4 fL 50.3 fL RDW Coefficient of Variation 15.1 % 15.0 % Immature Granulocyte % (Auto) 0.1 % Immature Granulocyte # (Auto) 0.01 K/uL Prothrombin Time 11.9 SECONDS Prothromb Time International Ratio 1.1 Activated Partial Thromboplast Time 25.0 SECONDS Partial Thromboplastin Ratio 1.0 D-Dimer 1780 ug/L FEU Sodium Level 137 mmol/L 139 mmol/L Potassium Level 3.8 mmol/L 3.3 mmol/L Chloride Level 98 mmol/L 99 mmol/L Carbon Dioxide Level 32 mmol/L 36 mmol/L Anion Gap 7.0 mmol/L 4.0 mmol/L Blood Urea Nitrogen 17 mg/dl 17 mg/dl Creatinine 0.67 mg/dl 0.63 mg/dl Est Creatinine Clear Calc Drug Dose 42.9 ml/min 45.3 ml/min Estimated GFR () 90.3 92.2 Estimated GFR (Non- 77.9 79.5 BUN/Creatinine Ratio 25.4 26.7 Random Glucose 112 mg/dl 83 mg/dl Calcium Level 9.2 mg/dl 8.6 mg/dl Total Bilirubin 2.1 mg/dl Aspartate Amino Transf (AST/SGOT) 48 U/L Alanine Aminotransferase (ALT/SGPT) 45 U/L Alkaline Phosphatase 116 U/L Troponin I < 0.015 ng/ml 0.016 ng/ml 0.020 ng/ml Pro-B-Type Natriuretic Peptide 3611 pg/ml Total Protein 7.4 gm/dl Albumin 3.3 gm/dl Globulin 4.1 gm/dl Albumin/Globulin Ratio 0.8 Magnesium Level 2.0 mg/dl Imaging: EKG: Telemetry reviewed: Assessment & Plan #1. Congestive heart failure: She presents now with some evidence for left sided congestive heart failure (hypoxia, elevated BNP but negative chest x-ray and CT scan for CHF) as well as worsening peripheral edema. This is consistent with fluid overload and I agree with diuresis, she has had significant symptomatic improvement since admission. We need to investigate her left ventricular function to make sure this is not a cause of fluid retention. She appears to have new onset atrial fibrillation however (or at least newly diagnosed) which is very likely to be part of the pathophysiology of her worsening fluid retention. #2. Atrial fibrillation: She had an electrocardiogram in July 2015 where she was in sinus rhythm with premature atrial beats, I don't see an electrocardiogram since. She did have an irregular rate then so AF could've been missed since she has long-standing irregularity not due to atrial fibrillation. Currently she is clearly in atrial fibrillation, but I cannot determine the duration. She should be anticoagulated for this, despite her age. I would recommend Eliquis 2.5 mg twice a day (a reduced dose due to her age and light weight). She is agreeable, although reluctant, due to her being on warfarin. #3. Peripheral edema: Although this is long-standing it was currently worse, possibly from atrial fibrillation but we do not know her left ventricular function. We will need an echocardiogram for that, which is ordered and pending. For the moment this is clearly improved, at least in part this is dependent. Thank you for allowing me to participate in her care.
[2017-02-10] MEDS ORDERED: APIXABAN 2.5 MG TAB PO ONE (10:45)
--- NOTE | 2017-02-10 11:53 | Pulmonary Consultation ---
History General Date of Service: February 10, 2017. Stated Complaint: Hypoxia HPI The patient is a 89 year old female who presents to [facility] with complaints of Hypoxia. The patient's primary care provider is Maya Cottrell DO. 89-year-old female admitted for progressive shortness of breath. Patient has been noted to have increasing lower extremity edema and on evaluation his possibly new onset atrial fibrillation. It appears at this time patient is most likely having a CHF exacerbation but on workup to rule out pulmonary embolism a CT of the chest was performed showing bilateral greater than 1 cm nodules versus infiltrates. The right upper right lower and left upper lobe were all new as compared to a CT of the thorax performed 10/06/2017. Patient does have a past medical history significant for breast carcinoma and overall mild to moderate risk for primary lung carcinoma. Patient does complain of chronic productive cough (yellow) over the past 10 years and notable rhinitis. Denies: Fever, chills, unintentional weight loss, pleurisy, cardiac chest pain, palpitations, hemoptysis Work-Up WBC: 8K H/H: PLT: 199 D-dimer: 1780 INR: 1.1 PT: 11.9 aPTT: 25.0 BUN/Cr: 17/0.67 T Bili: 2.1 AST: 48 BNP: 3611 Monitor Strip: A-flutter EKG: Atrial Fibrillation rate: 76 Right & Left DVT studies No DVTs noted CXR: Signs of chronic fibrotic changes through-out the mark thoraces CTA: compared to 10/06/2007 No PE Mild peribronchial prominence with some mucus plugging bilaterally Bilateral >1cm nodules Improved atelectasis in the RML Historian: patient, EMS Review of Systems Constitutional: reports: weakness Eyes: reports: blurred vision ENT: reports: no symptoms Cardiovascular: reports: as stated in HPI Respiratory: reports: as stated in HPI Genitourinary - Female: reports: no symptoms Musculoskeletal: reports: no symptoms Integumentary: reports: no symptoms Neurologic: reports: no symptoms Psychiatric: reports: no symptoms Endocrine: no symptoms Hematologic / Lymphatic: no symptoms Allergic / Immunologic: no symptoms Past Medical History Past Medical History: 1. Aneurysm of aortic arch 2. Asthma 3. Atrial premature beats 4. Edema of both legs 5. Glaucoma 6. Hypertension 7. Mild tricuspid regurgitation 8. Moderate mitral regurgitation/Prolapse 9. Osteoporosis 10. Supraventricular tachycardia 11. Scoliosis 12. Breast Ca 13. GERD 14. SVT (supra-ventricular tachycardia) Past Surgical History: 1. Mastectomy left 2. elbow surgery 3. tracbeculectomy Family History Hypertension Social History Denied: History of Alcohol Use Marital History - smoking: Patient has a total of 4 year smoking history Hx Tobacco Use In Past Year?: No Smoking Status: Never Smoker Marital status: Housing status: lives with family Occupational Status: retired History of MDRO History of MDRO: No Allergies Coded Allergies: Penicillins (Verified Allergy, Unknown, 05/20/16) Current Medications Reported Home Medications Medications Dose Route/Sig Max Daily Dose Days Date Category Dose Instructions Prednisolone Acetate (Prednisolone Acetate (Ophth)) 1 % Rocio 1 Drop OPR QID 10 02/09/17 Reported EACH EYE Travatan Z (Travoprost) 0.004 % Aleks 1 Drops OPL HS PRN 02/09/17 Reported Timolol Gfs 0.5% (Generic For Timoptic-Xe) (Timolol Maleate) 74 Drops/5 Ml Soln 1 Drop OPB BID 02/09/17 Reported 0.25% Michelle 128 (Sodium Chloride Hypertonic) 2 % Shaniqua 02/09/17 Reported Hydrochlorothiazide 12.5 Mg Tab 2 Tab PO DAILY 90 02/09/17 Reported Calcium (Calcium Carbonate) 600 Mg Tab 600 Mg PO DAILY 02/09/17 Reported Benicar (Olmesartan Medoxomil) 40 Mg Tab 1 Tab PO DAILY 05/20/16 Reported Ascorbic Acid 500 Mg Tab 500 Mg PO DAILY 08/13/15 Reported [place]-3 (Fish Oil) 1 Ea Cap 1,200 Mg PO DAILY 08/13/15 Reported Vitamin D3 (Cholecalciferol) 1,000 Unit Tab 1,000 Units PO DAILY 30 08/13/15 Reported Aspirin Ec (Aspirin) 81 Mg Tab 81 Mg PO DAILY 08/13/15 Reported Prolensa (Bromfenac Sodium (Ophth)) 0.07 % Shaniqua 1 Drop OPR DAILY 08/13/15 Reported Michelle 128 Oph (Sodium Chloride) Oint 1 Appln OPR QID 08/13/15 Reported Tenormin (Atenolol) 25 Mg Tab 25 Mg PO TID 05/04/09 Reported Physical Physical Exam Vital Signs: Date Time Temp Pulse Resp B/P Pulse Ox O2 Delivery O2 Flow Rate FiO2 02/10/17 11:26 36.7 71 18 113/64 98 3.0 02/10/17 08:00 Nasal Cannula 3.0 02/10/17 07:32 37.0 80 18 112/69 95 3.0 02/10/17 04:00 Nasal Cannula 3.0 02/10/17 03:45 36.7 72 18 103/60 93 Nasal Cannula 3.0 02/10/17 00:08 36.7 83 18 112/67 96 Nasal Cannula 3.0 02/10/17 00:00 Nasal Cannula 3.0 02/09/17 18:47 36.4 90 20 14/75 93 Nasal Cannula 3.0 02/09/17 18:31 89 20 136/74 96 Nasal Cannula 3.0 02/09/17 17:33 90 22 156/95 96 Nasal Cannula 2.0 02/09/17 16:57 80 02/09/17 16:56 93 Nasal Cannula 3.0 02/09/17 16:36 82 18 119/81 84 Room Air 02/09/17 15:58 Room Air 02/09/17 15:29 36.4 85 22 146/96 Room Air General Appearance: thin Head: NORMOCEPHALIC, ATRAUMATIC Eyes: PERRLA, NO DISCHARGE, EOMI ENT: NORMAL EAR EXAM, NORMAL NASAL EXAM, NORMAL MOUTH EXAM, NORMAL THROAT EXAM Neck: NORMAL RANGE OF MOTION, NO TENDERNESS, TRACHEA MIDLINE, NO STRIDOR Respiratory: other (rales and crackles appreciated bilaterally greatest at the bases) Cardiovasular: other (irregular rate and rhythm with 3/6 systolic murmur) Abdomen: NON TENDER, NORMAL BOWEL SOUNDS, NO REBOUND, NO MASSES, NO GUARDING, NO ORGANOMEGALY Genitourinary - Female: EXTERNAL GENITALIA NORMAL Back: NORMAL INSPECTION, NO MIDLINE TENDERNESS, NO CVA TENDERNESS, NO PARAVERTEBRAL TTP, NORMAL RANGE OF MOTION Upper Extremities: NO EDEMA, NO DEFORMITY, NORMAL ROM Lower Extremities: NO EDEMA, NO DEFORMITY, NORMAL ROM Pulses: carotid (R) (1+), carotid (L) (1+), posterior tibial (R), posterior tibial (L) (1+) Neuro: ALERT, NORMAL MOTOR EXAM, NORMAL SENSATION, other (oriented times person and place) Reflexes: biceps (R) (1+), bicpes (L) (1+) Babinski Testing: right (downgoing), left (downgoing) Psychiatric: NORMAL AFFECT, NO SUICIDAL IDEATION Diagnostics Labs Results Past 24 Hours Test 02/09/17 15:50 02/09/17 22:02 02/10/17 06:33 Range/Units White Blood Count 7.55 6.80 4.8-10.8 K/uL Red Blood Count 3.94 3.66 4.2-5.4 M/uL Hemoglobin 12.2 11.4 12.0-16.0 g/dL Hematocrit 36.7 33.7 37-47 % Mean Corpuscular Volume 93.1 92.1 80-100 fL Mean Corpuscular Hemoglobin 31.0 31.1 25-34 pg Mean Corpuscular Hemoglobin Concent 33.2 33.8 32-36 g/dl Platelet Count 218 199 130-400 K/uL Mean Platelet Volume 9.9 9.9 7.4-10.4 fL Neutrophils (%) (Auto) 69.3 % Lymphocytes (%) (Auto) 19.1 % Monocytes (%) (Auto) 9.9 % Eosinophils (%) (Auto) 1.2 % Basophils (%) (Auto) 0.4 % Neutrophils # (Auto) 5.23 1.4-6.5 K/uL Lymphocytes # (Auto) 1.44 1.2-3.4 K/uL Monocytes # (Auto) 0.75 0.11-0.59 K/uL Eosinophils # (Auto) 0.09 0-0.5 K/uL Basophils # (Auto) 0.03 0-0.2 K/uL RDW Standard Deviation 51.4 50.3 36.4-46.3 fL RDW Coefficient of Variation 15.1 15.0 11.5-14.5 % Immature Granulocyte % (Auto) 0.1 % Immature Granulocyte # (Auto) 0.01 0.00-0.02 K/uL Prothrombin Time 11.9 9.0-12.0 SECONDS Prothromb Time International Ratio 1.1 0.9-1.1 Activated Partial Thromboplast Time 25.0 21.0-31.0 SECONDS Partial Thromboplastin Ratio 1.0 D-Dimer 1780 0-500 ug/L FEU Sodium Level 137 139 136-145 mmol/L Potassium Level 3.8 3.3 3.5-5.1 mmol/L Chloride Level 98 99 98-107 mmol/L Carbon Dioxide Level 32 36 21-32 mmol/L Anion Gap 7.0 4.0 3-11 mmol/L Blood Urea Nitrogen 17 17 7-18 mg/dl Creatinine 0.67 0.63 0.60-1.20 mg/dl Est Creatinine Clear Calc Drug Dose 42.9 45.3 ml/min Estimated GFR () 90.3 92.2 Estimated GFR (Non- 77.9 79.5 BUN/Creatinine Ratio 25.4 26.7 10-20 Random Glucose 112 83 70-99 mg/dl Calcium Level 9.2 8.6 8.5-10.1 mg/dl Total Bilirubin 2.1 0.2-1 mg/dl Aspartate Amino Transf (AST/SGOT) 48 15-37 U/L Alanine Aminotransferase (ALT/SGPT) 45 12-78 U/L Alkaline Phosphatase 116 45-117 U/L Troponin I < 0.015 0.016 0.020 0-0.045 ng/ml Pro-B-Type Natriuretic Peptide 3611 0-1800 pg/ml Total Protein 7.4 6.4-8.2 gm/dl Albumin 3.3 3.4-5.0 gm/dl Globulin 4.1 2.5-4.0 gm/dl Albumin/Globulin Ratio 0.8 0.9-2 Magnesium Level 2.0 1.8-2.4 mg/dl Diagnostic Radiology CXR: Signs of chronic fibrotic changes through-out the mark thoraces CTA: compared to 10/06/2007 No PE Mild peribronchial prominence with some mucus plugging bilaterally Bilateral >1cm nodules Improved atelectasis in the RML cell stripper Strip: A-flutter EKG: Atrial Fibrillation rate: 76 Impression Assessment and Plan 89-year-old female admitted with congestive heart failure and new onset atrial fibrillation: #1 shortness of breath: Most likely secondary to congestive heart failure. #2 pulmonary nodules: Patient has multiple pulmonary nodules bilaterally that are different from previous CAT scan performed 10/06/2007. This is very worrisome as the patient has a mild to moderate risk factor for primary lung carcinoma but does have a notable history of breast carcinoma in the past. This time we'll initiate dornase and chest physiotherapy as her previous CT does show multiple mucous plugging a sputum specimen the right middle lobe. This CT we'll have to be repeated in the next 3 months. We'll also initiate Levaquin for community acquired pneumonia requiring hospitalization. Thank you for this consultation
--- NOTE | 2017-02-10 12:03 | Progress Note ---
Medicine Progress Note Date & Time of Visit: February 10, 2017 at 11:29. Subjective Pt was seen and examined Lying in bed with no distress Pt said that her swelling looks much better Pt said that in the past they told her that she had skipping beat she denies any chest pain, palpitation and sob Objective Last 8 Hrs Date Time Temp Pulse Resp B/P Pulse Ox O2 Delivery O2 Flow Rate FiO2 02/10/17 08:00 Nasal Cannula 3.0 02/10/17 07:32 37.0 80 18 112/69 95 3.0 02/10/17 04:00 Nasal Cannula 3.0 02/10/17 03:45 36.7 72 18 103/60 93 Nasal Cannula 3.0 Physical Exam: General- no acute distress Head- atraumatic Eyes- PERRL, EOMI ENT- oropharynx clear Neck- supple, no JVD Lungs- clear to auscultation Heart- irregular rhythm, Systolic murmur Abdomen- normal bowel sounds, soft Extremities- + edema, no calf tenderness Neuro- alert, oriented x 3; PERRL, EOMI; no facial palsy Skin- warm & dry Laboratory Results: Last 24 Hours Test 02/09/17 15:50 02/09/17 22:02 02/10/17 06:33 White Blood Count 7.55 K/uL 6.80 K/uL Red Blood Count 3.94 M/uL 3.66 M/uL Hemoglobin 12.2 g/dL 11.4 g/dL Hematocrit 36.7 % 33.7 % Mean Corpuscular Volume 93.1 fL 92.1 fL Mean Corpuscular Hemoglobin 31.0 pg 31.1 pg Mean Corpuscular Hemoglobin Concent 33.2 g/dl 33.8 g/dl Platelet Count 218 K/uL 199 K/uL Mean Platelet Volume 9.9 fL 9.9 fL Neutrophils (%) (Auto) 69.3 % Lymphocytes (%) (Auto) 19.1 % Monocytes (%) (Auto) 9.9 % Eosinophils (%) (Auto) 1.2 % Basophils (%) (Auto) 0.4 % Neutrophils # (Auto) 5.23 K/uL Lymphocytes # (Auto) 1.44 K/uL Monocytes # (Auto) 0.75 K/uL Eosinophils # (Auto) 0.09 K/uL Basophils # (Auto) 0.03 K/uL RDW Standard Deviation 51.4 fL 50.3 fL RDW Coefficient of Variation 15.1 % 15.0 % Immature Granulocyte % (Auto) 0.1 % Immature Granulocyte # (Auto) 0.01 K/uL Prothrombin Time 11.9 SECONDS Prothromb Time International Ratio 1.1 Activated Partial Thromboplast Time 25.0 SECONDS Partial Thromboplastin Ratio 1.0 D-Dimer 1780 ug/L FEU Sodium Level 137 mmol/L 139 mmol/L Potassium Level 3.8 mmol/L 3.3 mmol/L Chloride Level 98 mmol/L 99 mmol/L Carbon Dioxide Level 32 mmol/L 36 mmol/L Anion Gap 7.0 mmol/L 4.0 mmol/L Blood Urea Nitrogen 17 mg/dl 17 mg/dl Creatinine 0.67 mg/dl 0.63 mg/dl Est Creatinine Clear Calc Drug Dose 42.9 ml/min 45.3 ml/min Estimated GFR () 90.3 92.2 Estimated GFR (Non- 77.9 79.5 BUN/Creatinine Ratio 25.4 26.7 Random Glucose 112 mg/dl 83 mg/dl Calcium Level 9.2 mg/dl 8.6 mg/dl Total Bilirubin 2.1 mg/dl Aspartate Amino Transf (AST/SGOT) 48 U/L Alanine Aminotransferase (ALT/SGPT) 45 U/L Alkaline Phosphatase 116 U/L Troponin I < 0.015 ng/ml 0.016 ng/ml 0.020 ng/ml Pro-B-Type Natriuretic Peptide 3611 pg/ml Total Protein 7.4 gm/dl Albumin 3.3 gm/dl Globulin 4.1 gm/dl Albumin/Globulin Ratio 0.8 Magnesium Level 2.0 mg/dl Assessment & Plan ACUTE HYPOXIA - Possible related to left sided CHF - CXR showed Mild stable cardiomegaly. - BNP elevated on admission - CTA chest negative for PE - Reveived lasix 40mg IV in the ER - Continue lasix 40mg daily - Echo pending - Monitor BMP - Clinically improved HYPOKALEMIA K 3.3 K replaced monitor BMP LOWER EXTREMITY EDEMA - Ddimer elevated on admission - RLE Doppler US negative for DVT - Swelling improved with Lasix AFIB - EKG with Afib - Rate controlled - Last EKG was in 08/07 as per Cardiology, that was sinus rhythm - Cannot determine the duration. - Case Discussed with Cardiology that recommended she should be anticoagulated, despite her age - continue Atenolol - Elequis 2.5 mg started - Echo Pending H/O SVT - follows with Manuel Marin - Rate is controlled - Continue BB HTN - stable - continue BB, HCTZ, Benicar - monitor in tele H/O MITRAL REGURGITATION H/O BREAST CA - 1997, s/p mastectomy GLAUCOMA - continue eye drops DVT PROPHYLAXIS: Sq Lovenox CODE STATUS: FULL CODE Consultants: Cardiology Current Inpatient Medications: Current Inpatient Medications Medications (Trade) Dose Ordered Sig/Mainor Route Start Time Stop Time Status Last Admin Dose Admin Acetaminophen (Tylenol Tab) 650 mg Q4H PRN PO 02/09/17 18:15 03/11/17 18:14 Ondansetron HCl (Zofran Inj) 4 mg Q6H PRN IV 02/09/17 18:15 03/11/17 18:14 Ascorbic Acid (Vitamin C Tab) 500 mg DAILY PO 02/10/17 09:00 03/12/17 08:59 02/10/17 07:41 500 MG Aspirin (Ecotrin Tab) 81 mg DAILY PO 02/10/17 09:00 03/12/17 08:59 02/10/17 07:41 81 MG Atenolol (Tenormin Tab) 25 mg TID PO 02/09/17 21:00 03/11/17 20:59 02/10/17 07:43 25 MG Cholecalciferol (Vitamin D Tab) 1,000 inter.unit DAILY PO 02/10/17 09:00 03/12/17 08:59 02/10/17 07:42 1,000 INTER.UNIT Fish Oil ([place]-3 (Purified Fish Oil) Cap) 1 gm DAILY PO 02/10/17 09:00 03/12/17 08:59 Olmesartan (Benicar Tab) 40 mg DAILY PO 02/10/17 09:00 03/12/17 08:59 02/10/17 07:41 40 MG Prednisolone Acetate (Pred Forte 1% Oph Susp) 1 drops QID OPR 02/09/17 21:00 03/11/17 20:59 02/10/17 07:37 1 DROPS Sodium Chloride (Michelle 128 Oph Oint) 1 appln QID OPR 02/09/17 21:00 03/11/17 20:59 02/10/17 07:37 1 APPLN Timolol Maleate (Timoptic-Xe 0.5% Oph Soln) 74 drops BID OPB 02/09/17 21:00 03/11/17 20:59 02/10/17 07:35 74 DROPS Travoprost (Travatan Z) 1 drops HS PRN OPL 02/09/17 21:00 03/11/17 20:59 Miscellaneous Information (Order Awaiting Action) 1 ea QS N/A 02/10/17 00:00 03/12/17 00:00 Hydrochlorothiazide (Hydrochlorothiazide Tab) 25 mg DAILY PO 02/10/17 09:00 03/12/17 08:59 02/10/17 07:42 25 MG Ioversol (Optiray 320) 87 ml UD PRN IV 02/09/17 20:45 02/13/17 20:44 Apixaban (Eliquis Tab) 2.5 mg BID PO 02/10/17 21:00 03/12/17 20:59
--- NOTE | 2017-02-10 12:29 | ECHOCARDIOGRAM REPORT ---
*NOTICE TO RECEIVING LIBERTARIAN AGENCY This information is strictly Confidential and protected under [place] law. [place] law prohibits you from making any further disclosure of this information unless further disclosure is expressly permitted by the written consent of the person to whom it pertains or is authorized by law. A general authorization for the release of medical or other information is not sufficient for this purpose. Hospital accepts no responsibility if the information is made available to any other person, INCLUDING THE PATIENT. Interpretation Summary * Name: WILI VASQUEZ Study Date: 02/10/2017 07:32 AM BP: 103/60 mmHg * Patient Location: .2T\S\S236\S\1 HR: 72 * : 1925 (M/d/yyy) Gender: Female Height: 61 in * Age: 89 yrs Ethnicity: [place] Weight: 109 lb * Ordering Physician: Cathie Jurado * Referring Physician: Self, Referred * Performed By: John Jurado RDCS * * Reason For Study: CHF * BSA: 1.5 m2 * -- Conclusions -- * 1. Small LV cavity size with borderline concentric LVH. Grade II diastolic dysfunction. * 2. Normal LV systolic function. LVEF 60-65%. No regional wall motion abnormalities. * 3. Normal RV size, mild RV dysfunction. * 4. Severely dilated right atrium. * 5. Mild aortic regurgitation. Mild aortic sclerosis without stenosis. * 6. Mild to moderate mitral regurgitation. * 7. Moderate tricuspid regurgitation. * 8. Moderate to severe pulmonary hypertension. Est PASP 55-60 mmHg. Est RA 15 mmHg. * 9. Borderline ascending aorta dilation (3.8 cm). * 10. No prior studies for comparison. Procedure Details * A complete two-dimensional transthoracic echocardiogram was performed (2D, M-mode, Doppler and color flow Doppler). * The study was technically adequate. Left Ventricle * The left ventricular cavity is small. * There is borderline concentric left ventricular hypertrophy. * The basal septum is thickened and angulated consistent with sigmoid septum. * Ejection Fraction = 60-65%. * No regional wall motion abnormalities noted. Right Ventricle * The right ventricle is grossly normal size. * The right ventricular systolic function is mildly reduced. Atria * The left atrial size is normal. * The right atrium is severely dilated. * No ASD detected; PFO is not assessed. Mitral Valve * There is moderate mitral annular calcification. * The mitral valve leaflets appear thickened, but open well. * There is no mitral valve stenosis. * There is mild to moderate mitral regurgitation. Tricuspid Valve * The tricuspid valve is not well visualized, but is grossly normal. * There is no tricuspid stenosis. * There is moderate tricuspid regurgitation. * Right ventricular systolic pressure is elevated at 50-60mmHg. Aortic Valve * Aortic valve sclerosis mild, without significant aortic valvular stenosis. * The aortic valve is tricuspid. The leaflet thickness if normal. There is no aortic stenosis, and no significant insufficiency. * No hemodynamically significant valvular aortic stenosis. * Mild aortic regurgitation. Pulmonic Valve * The pulmonic valve is not well seen, but is grossly normal. * Pulmonic stenosis is absent. * Trace pulmonic valvular regurgitation. Great Vessels * Borderline dilated ascending aorta. Pericardium/Pleural * There is no pericardial effusion. * Small left pleural effusion. Great Vessels * Dilated inferior vena cava with reduced collapsability with sniff indicates an elevated right atrial pressure of 15 mmHg Left Ventricular Diastolic Function * Diastolic dysfunction, Grade II, consistent with elevated left atrial pressure. MMode 2D Measurements and Calculations IVSd 1.1 cm IVSs 1.7 cm LVIDd 4.1 cm LVIDs 2.8 cm LVPWd 0.81 cm LVPWs 1.3 cm IVS/LVPW 1.3 FS 32.2 % EDV(Teich) 74.7 ml ESV(Teich) 29.2 ml EF(Teich) 60.9 % EDV(cubed) 69.5 ml ESV(cubed) 21.7 ml EF(cubed) 68.8 % % IVS thick 56.8 % % LVPW thick 59.6 % LV mass(C)d 122.1 grams LV mass(C)dI 83.6 grams/m\S\2 LV mass(C)s 141.9 grams LV mass(C)sI 97.2 grams/m\S\2 SV(Teich) 45.5 ml SI(Teich) 31.1 ml/m\S\2 SV(cubed) 47.8 ml SI(cubed) 32.8 ml/m\S\2 EPSS 0.56 cm Ao root diam 3.5 cm Ao root area 9.8 cm\S\2 ACS 1.3 cm LA dimension 3.7 cm asc Aorta Diam 3.8 cm LA/Ao 1.0 LVOT diam 2.0 cm LVOT area 3.2 cm\S\2 LVAd ap4 14.8 cm\S\2 LVLd ap4 6.0 cm EDV(MOD-sp4) 30.0 ml LVAs ap4 8.1 cm\S\2 LVLs ap4 5.1 cm ESV(MOD-sp4) 11.0 ml EF(MOD-sp4) 63.3 % LVAd ap2 16.3 cm\S\2 LVLd ap2 6.1 cm EDV(MOD-sp2) 36.0 ml LVAs ap2 8.9 cm\S\2 LVLs ap2 5.1 cm ESV(MOD-sp2) 13.0 ml EF(MOD-sp2) 63.9 % SV(MOD-sp4) 19.0 ml SI(MOD-sp4) 13.0 ml/m\S\2 SV(MOD-sp2) 23.0 ml SI(MOD-sp2) 15.8 ml/m\S\2 Doppler Measurements and Calculations MV E max rickey 108.7 cm/sec MV A max rickey 30.5 cm/sec MV E/A 3.6 MV dec time 0.17 sec Ao V2 max 135.7 cm/sec Ao max PG 7.4 mmHg Ao max PG (full) 5.6 mmHg SALIMA(V,A) 1.6 cm\S\2 SALIMA(V,D) 1.6 cm\S\2 AI end-d rickey 296.7 cm/sec AI max rickey 378.9 cm/sec AI max PG 57.4 mmHg AI dec slope 187.4 cm/sec\S\2 AI P1/2t 592.1 msec LV V1 max PG 1.7 mmHg LV V1 max 65.9 cm/sec PA V2 max 98.2 cm/sec PA max PG 3.9 mmHg PI end-d rickey 126.8 cm/sec TR max rickey 330.8 cm/sec
[2017-02-10] MEDS: LEVOFLOXACIN 750 MG TAB PO SCH (13:46)
[2017-02-10] MEDS ORDERED: NURSING VERBAL MED ORDER ONE (15:00)
[2017-02-10] MEDS: SODIUM CHLORIDE 5% OP SOLN 15 ML BTL OPR SCH ×2 (16:20→20:42)
[2017-02-10] MEDS: BOOST VANILLA PO SCH ×2 (16:45)
[2017-02-10] MEDS: DORNASE ALFA (2500U) 2.5MG/2.5ML INH SCH (20:13)
[2017-02-10] MEDS: APIXABAN 2.5 MG TAB PO SCH (20:43)
[2017-02-10] MEDS: PROLENSA OP SCH ×2 (20:44→20:45)
[2017-02-11] VITALS (9 sets, daily range): BP systolic 105–137; BP diastolic 62–75; PULSE 74–89; TEMP 36.4–36.7; O2SAT 90–96
[2017-02-11] MEDS: DORNASE ALFA (2500U) 2.5MG/2.5ML INH SCH ×2 (07:18→19:52)
[2017-02-11] MEDS: APIXABAN 2.5 MG TAB PO SCH ×2 (07:54→19:20)
[2017-02-11] MEDS: OLMESARTAN MEDOXOMIL 40 MG TAB PO SCH (07:54)
[2017-02-11] MEDS: ASPIRIN 81 MG ECTAB PO SCH (07:54)
[2017-02-11] MEDS: HYDROCHLOROTHIAZIDE 25 MG TAB PO SCH (07:55)
[2017-02-11] MEDS: CHOLECALCIFEROL 1000 INTER.UNIT TAB PO SCH (07:55)
[2017-02-11] MEDS: ASCORBIC ACID 500 MG TAB PO SCH (07:55)
[2017-02-11] MEDS: OMEGA-3 (PURIFIED FISH OIL) 1 GM CAP PO SCH (07:55)
[2017-02-11] MEDS: TIMOLOL GFS 0.5% OPH SOLN 74 DROPS/5 ML BTL OPB SCH ×2 (08:14→19:18)
[2017-02-11] MEDS: PrednisoLONE ACET 1% OP SUSP 5 ML BTL OPR SCH ×2 (08:36→19:18)
[2017-02-11] MEDS: SODIUM CHLORIDE 5% OP SOLN 15 ML BTL OPR SCH ×4 (08:47→19:17)
[2017-02-11] MEDS: BOOST VANILLA PO SCH ×6 (08:52→16:45)
--- NOTE | 2017-02-11 10:46 | CARDIOLOGY PROGRESS NOTE ---
DATE: 02/11/2017 HISTORY OF PRESENT ILLNESS: The patient was seen by me this morning in her telemetry unit room. She slept well overnight. No orthopnea or PND. She denies any dyspnea walking around in the [place] last evening. No dyspnea today in the room. No palpitations or lightheadedness. No syncope. No chest pain or other anginal type pains. No abdominal pain or nausea today. Prior to admission, she was experiencing nausea. No leg pain. She feels her peripheral edema has markedly decreased since admission. No bleeding complaints. No cerebrovascular complaints suggestive of a thromboembolic event. Monitor history reviewed by me. Atrial fibrillation with ventricular rates in the 70s-80s. Occasional premature ventricular beat versus aberrantly conducted beats. PHYSICAL EXAMINATION: VITAL SIGNS: Intake and output yesterday 420/1450. Today's weight 46.6 kg. Yesterday's weight 47.4 kg. Vital signs this morning with oral temperature 36.6, pulse 82, blood pressure 112/70, and pulse oximetry 92% on 2 liters per nasal cannula oxygen. GENERAL: Shows her to be in no distress. She is sitting in a chair by her bedside. NECK: No jugular venous distention. LUNGS: Normal respiratory effort. Clear. No rales or wheezes. HEART: Irregularly irregular. No S3. No rub. 1/6 systolic murmur left lower sternal border. No diastolic murmur. ABDOMEN: Soft. Nontender. No palpable masses or organomegaly. No bruits. EXTREMITIES: Trace pretibial edema bilaterally. No calf tenderness. NEUROLOGIC: Alert and oriented x3. Motor grossly intact. PSYCHIATRIC: Affect normal. DATA: Electrocardiogram performed today with atrial fibrillation. Ventricular rate 76 beats per minute. Minor nonspecific ST and T wave abnormalities. Echocardiogram performed yesterday and reviewed by me with normal left ventricular systolic function. Borderline LVH. Type 2 left ventricular diastolic dysfunction. Qpwwxozu-je-izrnlt estimated pulmonary artery systolic pressure at 55-60 mmHg. Elevated central venous pressure. Tule-sm-zrwjahey mitral regurgitation, moderate tricuspid regurgitation, and mild aortic regurgitation. Mild right ventricular systolic dysfunction. Marked right atrial dilatation. Left atrium normal size. Metabolic profile and CBC from today are pending. Troponin I's have been negative for myocardial infarction. ProBNP on February 09 was elevated at 3611. Chest x-ray on February 09 and reviewed by me shows diffuse fibrotic changes throughout all lung [place]. CURRENT MEDICATIONS: Apixaban 2.5 mg b.i.d., prednisone Forte 1% one drop b.i.d., dornase 2.5 mL inhaled b.i.d., Boost 1 can t.i.d., levofloxacin 750 mg every 2 days, ascorbic acid 500 mg daily, aspirin 81 mg daily, vitamin D 1000 units daily, fish oil 1 gram daily, olmesartan 40 mg daily, hydrochlorothiazide 25 mg daily, and atenolol 25 mg t.i.d. ASSESSMENT: 1. Improvement in fluid retention. The patient received oral and intravenous furosemide on admission. 2. Atrial fibrillation. Ventricular rate controlled. This is on 3 times a day atenolol. Duration of atrial fibrillation unknown. Her normal left atrial size would imply that the atrial fibrillation has not been of a prolonged duration. 3. Fibrotic lung disease. 4. No complaints of dyspnea today. 5. Blood pressure under good control. 6. No bleeding complaints on anticoagulation therapy. RECOMMENDATIONS: 1. Switch diuretic from hydrochlorothiazide daily to furosemide 40 mg once daily. 2. Simplify her beta ani regimen. Switch from the atenolol 3 times a day to metoprolol succinate ER 100 mg daily. 3. Increase activity. 4. We will consider elective electrical cardioversion of atrial fibrillation in 1 month. She would need to be anticoagulated for at least 3 weeks prior to any attempt at cardioversion. I suspect that the patient's atrial fibrillation worsened her left ventricular diastolic dysfunction. This then would result in increased fluid retention.
[2017-02-11 11:45] LABS: HEMATOCRIT 34.8 % (37-47); MEAN CELL VOLUME 93.3 fL (80-100); MEAN CORPUSCULAR HEMOGLOBIN 30.8 pg (25-34); MEAN PLATELET VOLUME 9.6 fL (7.4-10.4); PLATELET COUNT 203 K/uL (130-400); RED BLOOD COUNT 3.73 M/uL (4.2-5.4); WHITE BLOOD COUNT 8.19 K/uL (4.8-10.8)
--- NOTE | 2017-02-11 11:58 | Pulmonology Progress Note ---
Pulmonary Progress Note Date of Service February 11, 2017. Attending Dr. Brown Subjective Feels generally improved today. Reports less sensation of heart palpitations vs on admission - no associated chest pain. Peripheral edema is present but improved. Cough remains present and non-productive despite inhaled Pulmozyme. Reports ambulating the hallways with her son yesterday without limiting dyspnea. She is looking forward to ambulating today as well. Appetite is in- tact. Objective 89-yo female admitted to [facility] through the ER with progressive bilateral Rt > Left lower extremity edema, mild cough and bloating. PMHx includes: CHF, MVP, HTN, paroxysmal supraventricular tachycardia, GERD, h/ o breast CA dx in the late s/p excision (no XRT or chemotherapy), chronic cough, glaucoma, osteoporosis, and asthma. Former light tobacco use: 4-pack year with some second hand exposure. Patient w/u included bilateral LE dopplers (neg for PE). ProBNP: 3611. She was noted to be mildly hypoxic on RA requiring 2LPM O2 via NC. EKG consistent with atrial fibrillation (new diagnosis). CXR described interstitial and fibrotic changes bilaterally with stable cardiomegaly. CTA not consistent with PE but did note multifocal small bilateral regions of inflammation with mild peribronchial prominence, bilateral mucous plugging, moderate cardiomegaly and dilation of the aortic root (4.1cm). She was treated with anticoagulation ( apixaban), Levaquin for CAP, b-ani, diuresis and pulmonary toilet (Pulmozyme ). Echocardiogram 02/10/17: EF: 60-65%, Grade II diastolic dysfunction. Severe RA dilation. Moderate TR, mild/moderate MR, PASP: 55-60mmHg. Today: - O2: 92-96%: 2LPM - Afebrile, HD stable - AM labs: pending Physical Exam: Constitutional: Well developed elderly female sitting in chair at bedside. No acute distress. Head: + facial symmetry, O2 via NC Eyes: EOMi, PERRLA, pale conjunctiva without injection Mouth: Mallampati [I]. No erythema, exudate, or post nasal gtt Neck: Trachea midline. No adenopathy or masses Respiratory: Non-labored respirations. Diminished on the right base and laterally. Cough on forced exporation. No wheeze. No rhonchi. No clubbing or cyanosis. Cardiovascular: Irregularly irregular. Rate controlled. +2 radial pulses. <1s capillary refill. Abdomen: soft, protuberant, active bowel sounds Integumentary: no rashes, or ecchymosis MSK/Extremities: Moving and developed symmetrically. trace bilateral edema. No erythema or calf tenderness. Neurologic: A&O, data recall in-tact. Appropriate affect. Assessment & Plan Abnormal CT: etiology of multifocal infiltrative and nodular changes may be attributed to infection, volume/edema or less likely malignancy. - Complete 7-day course of levofloxacin - Agree with volume optimization, daily weights, I/Os - Will need nocturnal oximetry study and 2-step prior to discharge - Repeat CT chest - high resolution without contrast as an outpatient in 04/2017 and follow-up in the pulmonary office Patient's case and patient reviewed and agree with plan. Data Medications: Current Inpatient Medications Medications (Trade) Dose Ordered Sig/Mainor Route Start Time Stop Time Status Last Admin Dose Admin Acetaminophen (Tylenol Tab) 650 mg Q4H PRN PO 02/09/17 18:15 03/11/17 18:14 Ondansetron HCl (Zofran Inj) 4 mg Q6H PRN IV 02/09/17 18:15 03/11/17 18:14 Ascorbic Acid (Vitamin C Tab) 500 mg DAILY PO 02/10/17 09:00 03/12/17 08:59 02/11/17 07:55 500 MG Aspirin (Ecotrin Tab) 81 mg DAILY PO 02/10/17 09:00 03/12/17 08:59 02/11/17 07:54 81 MG Atenolol (Tenormin Tab) 25 mg TID PO 02/09/17 21:00 03/11/17 20:59 02/11/17 07:55 25 MG Cholecalciferol (Vitamin D Tab) 1,000 inter.unit DAILY PO 02/10/17 09:00 03/12/17 08:59 02/11/17 07:55 1,000 INTER.UNIT Fish Oil ([place]-3 (Purified Fish Oil) Cap) 1 gm DAILY PO 02/10/17 09:00 03/12/17 08:59 02/11/17 07:55 1 GM Olmesartan (Benicar Tab) 40 mg DAILY PO 02/10/17 09:00 03/12/17 08:59 02/11/17 07:54 40 MG Timolol Maleate (Timoptic-Xe 0.5% Oph Soln) 74 drops BID OPB 02/09/17 21:00 03/11/17 20:59 02/11/17 08:14 74 DROPS Travoprost (Travatan Z) 1 drops HS PRN OPL 02/09/17 21:00 03/11/17 20:59 02/10/17 20:42 1 DROPS Hydrochlorothiazide (Hydrochlorothiazide Tab) 25 mg DAILY PO 02/10/17 09:00 03/12/17 08:59 02/11/17 07:55 25 MG Ioversol (Optiray 320) 87 ml UD PRN IV 02/09/17 20:45 02/13/17 20:44 Apixaban (Eliquis Tab) 2.5 mg BID PO 02/10/17 21:00 03/12/17 20:59 02/11/17 07:54 2.5 MG Dornase Jac (Pulmozyme Inhalation Soln 2.5ml Amp) 2.5 ml BIDR INH 02/10/17 20:00 03/12/17 19:59 02/11/17 07:18 2.5 ML Levofloxacin (Levaquin Tab) 750 mg Q2D@11 PO 02/10/17 13:00 02/17/17 12:59 02/10/17 13:46 750 MG Prednisolone Acetate (Pred Forte 1% Oph Susp) 1 drops BID OPR 02/10/17 21:00 03/12/17 20:59 02/11/17 08:36 1 DROPS Sodium Chloride (Michelle 128 Oph Soln) 1 drops QID OPR 02/10/17 17:00 03/12/17 16:59 02/11/17 08:47 1 DROPS Non-Formulary Medication (Non-Formulary Patient'S Own Med) 1 ea DAILY OP 02/11/17 09:00 03/13/17 08:59 02/10/17 20:44 1 EA Enteral Nutritional Formula (Boost) 1 can TIDM PO 02/10/17 16:45 03/12/17 16:44 02/11/17 08:52 1 CAN I & O: 24-Hour Column 02/11/17 08:00 Intake Total 420 ml Output Total 1800 ml Balance -1380 ml Vital Signs: Date Time Temp Pulse Resp B/P Pulse Ox O2 Delivery O2 Flow Rate FiO2 02/11/17 08:00 Nasal Cannula 2.0 02/11/17 07:30 36.6 82 20 112/70 92 Nasal Cannula 2.0 02/11/17 07:18 75 18 96 Nasal Cannula 2.0 02/11/17 04:00 Nasal Cannula 2.0 02/11/17 03:54 36.7 82 20 124/70 94 Nasal Cannula 2.0 02/11/17 00:00 36.7 79 20 111/73 96 Nasal Cannula 2.0 02/11/17 00:00 Nasal Cannula 2.0 02/10/17 20:00 Nasal Cannula 2.0 02/10/17 19:55 84 18 95 Nasal Cannula 2.0 02/10/17 19:03 36.4 79 18 91/55 97 Nasal Cannula 2.0 02/10/17 15:33 36.5 76 18 89/45 90 Nasal Cannula 3.0 02/10/17 15:12 Nasal Cannula 3.0 02/10/17 12:04 Nasal Cannula 3.0 Laboratory Results: Last 24 Hours Test 02/11/17 09:40
[2017-02-11 12:10] LABS: BUN/CREATININE RATIO 25.1 (10-20); CALCIUM 8.5 mg/dl (8.5-10.1); CREATININE 0.58 mg/dl (0.60-1.20); POTASSIUM 3.5 mmol/L (3.5-5.1)
--- NOTE | 2017-02-11 12:18 | Clinical Documentation Query ---
QUERY 1 OF [address] BUCKNER, In your clinical opinion is this patient being managed for: ( ) Acute diastolic CHF ( ) Other explanation of clinical findings (Please Explain) ( ) Unable to determine (Please Define) ( ) Need to Discuss ( ) Not Agree The medical record reflects the following clinical findings, treatment, and risk factors. Clinical Indicators:89 yo female presenting with bilateral LE edema and hypoxia. BNP 3611. Cardiology assessment: CHF. ECHO showed EF 60-65% with grade II diastolic CHF. Lungs initially with a few bibasilar crackles per ER assessment. Also with new onset (or newly diagnosed) A fib Treatment: tele, O2 support, cardiology consult, IV lasix, ECHO, serial cardiac enzymes Risk Factors: Age, HTN, A fib QUERY 2 OF 2 In your clinical opinion does this patient have: ( ) Chronic kidney disease, stage 2 ( ) Other explanation of clinical findings (Please Explain) ( ) Unable to determine (Please Define) ( ) Need to Discuss ( ) Not Agree The medical record reflects the following clinical findings, treatment, and risk factors. Clinical Indicators: Review of historical GFR shows range of 77.9-86.4 over the past 2 years. Treatment: monitor PRP's, treat comorbid diseases Risk Factors: HTN, SVT, age Please clarify and document your clinical opinion in the progress notes and discharge summary. Terms such as "probable", "suspected", "likely", "questionable", "possible", or "still to be ruled out" are acceptable. IF IN AGREEMENT, YOU MUST DOCUMENT ABOVE DIAGNOSTIC STATEMENT IN DAILY PROGRESS NOTES AND DISCHARGE SUMMARY. This document is not part of the patient's record. Thank You, Tyesha Mulligan, RN [phone]
[2017-02-11] MEDS ORDERED: METOPROLOL SUCC 50MG EXT REL TAB PO ONE (13:00)
--- NOTE | 2017-02-11 16:11 | Progress Note ---
Medicine Progress Note Date & Time of Visit: February 11, 2017 at 15:53. Subjective Pt was seen and examined Sitting in chair with no distress Pt said that she feels fine she said that she walked yesterday in the hallway with no distress Denies any chest pain, palpitation, dizziness and SOB. Objective Last 8 Hrs Date Time Temp Pulse Resp B/P Pulse Ox O2 Delivery O2 Flow Rate FiO2 02/11/17 12:00 Nasal Cannula 2.0 02/11/17 11:27 36.7 83 20 105/62 95 Room Air 02/11/17 08:00 Nasal Cannula 2.0 Physical Exam: General- no acute distress Head- atraumatic Eyes- PERRL, EOMI ENT- oropharynx clear Neck- supple, no JVD Lungs- clear to auscultation Heart- irregular rhythm, +Systolic murmur Abdomen- normal bowel sounds, soft Extremities- + mild edema, no calf tenderness Neuro- alert, oriented x 3; PERRL, EOMI; no facial palsy Skin- warm & dry Laboratory Results: Last 24 Hours Test 02/11/17 11:33 White Blood Count 8.19 K/uL Red Blood Count 3.73 M/uL Hemoglobin 11.5 g/dL Hematocrit 34.8 % Mean Corpuscular Volume 93.3 fL Mean Corpuscular Hemoglobin 30.8 pg Mean Corpuscular Hemoglobin Concent 33.0 g/dl RDW Standard Deviation 51.3 fL RDW Coefficient of Variation 15.1 % Platelet Count 203 K/uL Mean Platelet Volume 9.6 fL Sodium Level 139 mmol/L Potassium Level 3.5 mmol/L Chloride Level 99 mmol/L Carbon Dioxide Level 35 mmol/L Anion Gap 5.0 mmol/L Blood Urea Nitrogen 15 mg/dl Creatinine 0.58 mg/dl Est Creatinine Clear Calc Drug Dose 48.4 ml/min Estimated GFR () 94.7 Estimated GFR (Non- 81.7 BUN/Creatinine Ratio 25.1 Random Glucose 104 mg/dl Calcium Level 8.5 mg/dl Assessment & Plan ACUTE HYPOXIA - Possible related to left sided CHF vs Pneumonia - CXR showed Mild stable cardiomegaly. - BNP elevated on admission - CTA chest negative for PE. Multifocal pulmonary nodules and infiltrates - Continue lasix 40mg daily - Follow up with high resolution CT chest in 3 months (05/09). - Continue oxygen supplement - Pulmonary recommends overnight pulse oximetry and 2 step before discharge' - Continue levaquin to complete 7 days course - Monitor BMP - Clinically improved ECHO showed * 1. Small LV cavity size with borderline concentric LVH. Grade II diastolic dysfunction. * 2. Normal LV systolic function. LVEF 60-65%. No regional wall motion abnormalities. * 3. Normal RV size, mild RV dysfunction. * 4. Severely dilated right atrium. * 5. Mild aortic regurgitation. Mild aortic sclerosis without stenosis. * 6. Mild to moderate mitral regurgitation. * 7. Moderate tricuspid regurgitation. * 8. Moderate to severe pulmonary hypertension. Est PASP 55-60 mmHg. Est RA 15 mmHg. * 9. Borderline ascending aorta dilation (3.8 cm). HYPOKALEMIA K 3.5 stable monitor BMP LOWER EXTREMITY EDEMA - Ddimer elevated on admission - RLE Doppler US negative for DVT - Swelling improved with Lasix AFIB - EKG with Afib - Rate controlled - Last EKG was in 08/07 as per Cardiology, that was sinus rhythm - Cannot determine the duration. - Cardiology recommended that she should be anticoagulated, despite her age - continue eliquis 2.5 mg. No signs of bleeding - Atenolol changed to metoprolol ER H/O SVT - follows with Kip Tomas - Rate is controlled - Atenolol changed to metoprolol succ. ER HTN - stable - continue BB, Benicar and lasix - monitor in tele H/O MITRAL REGURGITATION H/O BREAST CA - 1997, s/p mastectomy GLAUCOMA - continue eye drops DVT PROPHYLAXIS: Eliquis CODE STATUS: FULL CODE Consultants: Cardiology Current Inpatient Medications: Current Inpatient Medications Medications (Trade) Dose Ordered Sig/Mainor Route Start Time Stop Time Status Last Admin Dose Admin Acetaminophen (Tylenol Tab) 650 mg Q4H PRN PO 02/09/17 18:15 03/11/17 18:14 Ondansetron HCl (Zofran Inj) 4 mg Q6H PRN IV 02/09/17 18:15 03/11/17 18:14 Ascorbic Acid (Vitamin C Tab) 500 mg DAILY PO 02/10/17 09:00 03/12/17 08:59 02/11/17 07:55 500 MG Aspirin (Ecotrin Tab) 81 mg DAILY PO 02/10/17 09:00 03/12/17 08:59 02/11/17 07:54 81 MG Cholecalciferol (Vitamin D Tab) 1,000 inter.unit DAILY PO 02/10/17 09:00 03/12/17 08:59 02/11/17 07:55 1,000 INTER.UNIT Fish Oil ([place]-3 (Purified Fish Oil) Cap) 1 gm DAILY PO 02/10/17 09:00 03/12/17 08:59 02/11/17 07:55 1 GM Olmesartan (Benicar Tab) 40 mg DAILY PO 02/10/17 09:00 03/12/17 08:59 02/11/17 07:54 40 MG Timolol Maleate (Timoptic-Xe 0.5% Oph Soln) 74 drops BID OPB 02/09/17 21:00 03/11/17 20:59 02/11/17 08:14 74 DROPS Travoprost (Travatan Z) 1 drops HS PRN OPL 02/09/17 21:00 03/11/17 20:59 02/10/17 20:42 1 DROPS Hydrochlorothiazide (Hydrochlorothiazide Tab) 25 mg DAILY PO 02/10/17 09:00 03/12/17 08:59 Future Hold 02/11/17 07:55 25 MG Ioversol (Optiray 320) 87 ml UD PRN IV 02/09/17 20:45 02/13/17 20:44 Apixaban (Eliquis Tab) 2.5 mg BID PO 02/10/17 21:00 03/12/17 20:59 02/11/17 07:54 2.5 MG Dornase Jac (Pulmozyme Inhalation Soln 2.5ml Amp) 2.5 ml BIDR INH 02/10/17 20:00 03/12/17 19:59 02/11/17 07:18 2.5 ML Levofloxacin (Levaquin Tab) 750 mg Q2D@11 PO 02/10/17 13:00 02/17/17 12:59 02/10/17 13:46 750 MG Prednisolone Acetate (Pred Forte 1% Oph Susp) 1 drops BID OPR 02/10/17 21:00 03/12/17 20:59 02/11/17 08:36 1 DROPS Sodium Chloride (Michelle 128 Oph Soln) 1 drops QID OPR 02/10/17 17:00 03/12/17 16:59 02/11/17 08:47 1 DROPS Non-Formulary Medication (Non-Formulary Patient'S Own Med) 1 ea DAILY OP 02/11/17 09:00 03/13/17 08:59 02/10/17 20:44 1 EA Enteral Nutritional Formula (Boost) 1 can TIDM PO 02/10/17 16:45 03/12/17 16:44 02/11/17 08:52 1 CAN Metoprolol Succinate (Toprol Xl Tab) 100 mg QAM PO 02/12/17 09:00 03/14/17 08:59 Furosemide (Lasix Tab) 40 mg QAM PO 02/12/17 09:00 03/14/17 08:59
[2017-02-11] MEDS ORDERED: FUROSEMIDE 20 MG TAB PO ONE (19:00)
[2017-02-12] VITALS (7 sets, daily range): BP systolic 82–112; BP diastolic 47–67; PULSE 66–81; TEMP 36.4–36.9; O2SAT 90–97
[2017-02-12 06:51] LABS: HEMATOCRIT 33.7 % (37-47); MEAN CELL VOLUME 93.9 fL (80-100); MEAN CORPUSCULAR HEMOGLOBIN 30.9 pg (25-34); MEAN CORPUSCULAR HGB CONC 32.9 g/dl (32-36); MEAN PLATELET VOLUME 9.3 fL (7.4-10.4); PLATELET COUNT 189 K/uL (130-400); RED BLOOD COUNT 3.59 M/uL (4.2-5.4); WHITE BLOOD COUNT 8.91 K/uL (4.8-10.8)
[2017-02-12] MEDS: DORNASE ALFA (2500U) 2.5MG/2.5ML INH SCH (07:07)
[2017-02-12 07:22] LABS: BUN/CREATININE RATIO 22.6 (10-20); CALCIUM 8.3 mg/dl (8.5-10.1); CREATININE 0.56 mg/dl (0.60-1.20); POTASSIUM 3.4 mmol/L (3.5-5.1)
[2017-02-12] MEDS: BOOST VANILLA PO SCH ×6 (07:30→16:45)
[2017-02-12] MEDS: TIMOLOL GFS 0.5% OPH SOLN 74 DROPS/5 ML BTL OPB SCH (08:18)
[2017-02-12] MEDS: SODIUM CHLORIDE 5% OP SOLN 15 ML BTL OPR SCH ×3 (08:19→17:21)
[2017-02-12] MEDS: APIXABAN 2.5 MG TAB PO SCH (08:19)
[2017-02-12] MEDS: OMEGA-3 (PURIFIED FISH OIL) 1 GM CAP PO SCH (08:19)
[2017-02-12] MEDS: ASPIRIN 81 MG ECTAB PO SCH (08:19)
[2017-02-12] MEDS: OLMESARTAN MEDOXOMIL 40 MG TAB PO SCH (08:19)
[2017-02-12] MEDS: CHOLECALCIFEROL 1000 INTER.UNIT TAB PO SCH (08:20)
[2017-02-12] MEDS: ASCORBIC ACID 500 MG TAB PO SCH (08:20)
[2017-02-12] MEDS: PROLENSA OP SCH (08:21)
[2017-02-12] MEDS: PrednisoLONE ACET 1% OP SUSP 5 ML BTL OPR SCH (08:22)
[2017-02-12] MEDS ORDERED: METOPROLOL SUCC 50MG EXT REL TAB PO SCH (09:00)
[2017-02-12] MEDS ORDERED: POTASSIUM CHLORIDE 20 MEQ TABCR PO ONE (09:00)
[2017-02-12] MEDS ORDERED: FUROSEMIDE 40 MG TAB PO SCH (09:00)
[2017-02-12] MEDS: LEVOFLOXACIN 750 MG TAB PO SCH (11:08)
--- NOTE | 2017-02-12 13:37 | Progress Note ---
Medicine Progress Note Date & Time of Visit: February 12, 2017 at 13:20. Subjective Pt was seen and examined Sitting in chair with no distress Pt said that she had a good night last night denies any chest pain, palpitation, dizziness and SOB Objective Last 8 Hrs Date Time Temp Pulse Resp B/P Pulse Ox O2 Delivery O2 Flow Rate FiO2 02/12/17 11:40 36.6 66 18 82/56 90 Room Air 02/12/17 08:00 Nasal Cannula 1.0 02/12/17 07:27 36.9 79 18 112/67 97 Room Air 02/12/17 07:08 81 18 95 Nasal Cannula 2.0 Physical Exam: General- no acute distress Head- atraumatic Eyes- PERRL, EOMI ENT- oropharynx clear Neck- supple, no JVD Lungs- clear to auscultation, poor air entry Heart- irregular rhythm, +Systolic murmur Abdomen- normal bowel sounds, soft Extremities- + mild edema, no calf tenderness Neuro- alert, oriented x 3; PERRL, EOMI; no facial palsy Skin- warm & dry Laboratory Results: Last 24 Hours Test 02/12/17 06:40 White Blood Count 8.91 K/uL Red Blood Count 3.59 M/uL Hemoglobin 11.1 g/dL Hematocrit 33.7 % Mean Corpuscular Volume 93.9 fL Mean Corpuscular Hemoglobin 30.9 pg Mean Corpuscular Hemoglobin Concent 32.9 g/dl RDW Standard Deviation 51.4 fL RDW Coefficient of Variation 15.0 % Platelet Count 189 K/uL Mean Platelet Volume 9.3 fL Sodium Level 141 mmol/L Potassium Level 3.4 mmol/L Chloride Level 99 mmol/L Carbon Dioxide Level 39 mmol/L Anion Gap 3.0 mmol/L Blood Urea Nitrogen 13 mg/dl Creatinine 0.56 mg/dl Est Creatinine Clear Calc Drug Dose 50.4 ml/min Estimated GFR () 95.8 Estimated GFR (Non- 82.7 BUN/Creatinine Ratio 22.6 Random Glucose 90 mg/dl Calcium Level 8.3 mg/dl Assessment & Plan ACUTE HYPOXIA - Possible related to left sided CHF vs Pneumonia - CXR showed Mild stable cardiomegaly. - BNP elevated on admission - CTA chest negative for PE. Multifocal pulmonary nodules and infiltrates - Continue lasix 40mg daily - Follow up with high resolution CT chest in 3 months (05/09). - Continue oxygen supplement - Continue levaquin to complete 7 days course - overnight pulse oximetry done and 2 step done. - Pt will require oxygen supplement upon discharge - it applications manager will arrange for the oxygen - Clinically improved ECHO showed * 1. Small LV cavity size with borderline concentric LVH. Grade II diastolic dysfunction. * 2. Normal LV systolic function. LVEF 60-65%. No regional wall motion abnormalities. * 3. Normal RV size, mild RV dysfunction. * 4. Severely dilated right atrium. * 5. Mild aortic regurgitation. Mild aortic sclerosis without stenosis. * 6. Mild to moderate mitral regurgitation. * 7. Moderate tricuspid regurgitation. * 8. Moderate to severe pulmonary hypertension. Est PASP 55-60 mmHg. Est RA 15 mmHg. * 9. Borderline ascending aorta dilation (3.8 cm). HYPOKALEMIA -K 3.4 -K replaced -monitor BMP LOWER EXTREMITY EDEMA - Ddimer elevated on admission - RLE Doppler US negative for DVT - Swelling improved with Lasix ACUTE DIASTOLIC CHF -continue lasix, metoprolol -stable AFIB - EKG with Afib - Rate controlled - Last EKG was in 08/07 as per Cardiology, that was sinus rhythm - Cannot determine the duration. - Cardiology recommended that she should be anticoagulated, despite her age - continue eliquis 2.5 mg. No signs of bleeding - Atenolol changed to metoprolol ER - Consider elective electrical cardioversion of atrial fibrillation in 1 month if she does not convert to NSR H/O SVT - follows with Manuel Ruggieroeler - Rate is controlled - Atenolol changed to metoprolol succ. ER HTN - On BB, Benicar and lasix -BP was in the low side this morning, will decrease metoprolol to 50mg daily H/O MITRAL REGURGITATION H/O BREAST CA - 1997, s/p mastectomy GLAUCOMA - continue eye drops DVT PROPHYLAXIS: Eliquis CODE STATUS: FULL CODE Consultants: Cardiology Current Inpatient Medications: Current Inpatient Medications Medications (Trade) Dose Ordered Sig/Mainor Route Start Time Stop Time Status Last Admin Dose Admin Acetaminophen (Tylenol Tab) 650 mg Q4H PRN PO 02/09/17 18:15 03/11/17 18:14 Ondansetron HCl (Zofran Inj) 4 mg Q6H PRN IV 02/09/17 18:15 03/11/17 18:14 Ascorbic Acid (Vitamin C Tab) 500 mg DAILY PO 02/10/17 09:00 03/12/17 08:59 02/12/17 08:20 500 MG Aspirin (Ecotrin Tab) 81 mg DAILY PO 02/10/17 09:00 03/12/17 08:59 02/12/17 08:19 81 MG Cholecalciferol (Vitamin D Tab) 1,000 inter.unit DAILY PO 02/10/17 09:00 03/12/17 08:59 02/12/17 08:20 1,000 INTER.UNIT Fish Oil ([place]-3 (Purified Fish Oil) Cap) 1 gm DAILY PO 02/10/17 09:00 03/12/17 08:59 02/12/17 08:19 1 GM Olmesartan (Benicar Tab) 40 mg DAILY PO 02/10/17 09:00 03/12/17 08:59 02/12/17 08:19 40 MG Timolol Maleate (Timoptic-Xe 0.5% Oph Soln) 74 drops BID OPB 02/09/17 21:00 03/11/17 20:59 02/12/17 08:18 74 DROPS Travoprost (Travatan Z) 1 drops HS PRN OPL 02/09/17 21:00 03/11/17 20:59 02/10/17 20:42 1 DROPS Hydrochlorothiazide (Hydrochlorothiazide Tab) 25 mg DAILY PO 02/10/17 09:00 03/12/17 08:59 Future Hold 02/11/17 07:55 25 MG Ioversol (Optiray 320) 87 ml UD PRN IV 02/09/17 20:45 02/13/17 20:44 Apixaban (Eliquis Tab) 2.5 mg BID PO 02/10/17 21:00 03/12/17 20:59 02/12/17 08:19 2.5 MG Dornase Jac (Pulmozyme Inhalation Soln 2.5ml Amp) 2.5 ml BIDR INH 02/10/17 20:00 03/12/17 19:59 02/12/17 07:07 2.5 ML Levofloxacin (Levaquin Tab) 750 mg Q2D@11 PO 02/10/17 13:00 02/17/17 12:59 02/12/17 11:08 750 MG Prednisolone Acetate (Pred Forte 1% Oph Susp) 1 drops BID OPR 02/10/17 21:00 03/12/17 20:59 02/12/17 08:22 1 DROPS Sodium Chloride (Michelle 128 Oph Soln) 1 drops QID OPR 02/10/17 17:00 03/12/17 16:59 02/12/17 08:19 1 DROPS Non-Formulary Medication (Non-Formulary Patient'S Own Med) 1 ea DAILY OP 02/11/17 09:00 03/13/17 08:59 02/12/17 08:21 1 EA Enteral Nutritional Formula (Boost) 1 can TIDM PO 02/10/17 16:45 03/12/17 16:44 02/12/17 11:09 1 CAN Metoprolol Succinate (Toprol Xl Tab) 100 mg QAM PO 02/12/17 09:00 03/14/17 08:59 02/12/17 08:20 100 MG Furosemide (Lasix Tab) 40 mg QAM PO 02/12/17 09:00 03/14/17 08:59 02/12/17 08:21 40 MG
[2017-02-12] MEDS ORDERED: LVQ750 PO (16:15)
[2017-02-12] MEDS ORDERED: FURO20TA PO (16:15)
[2017-02-12] MEDS ORDERED: TPRSR50 PO (16:15)
[2017-02-12] MEDS ORDERED: ELQ25 PO (16:15)
--- NOTE | 2017-02-12 16:21 | Discharge Instructions ---
Discharge Instructions Date of Service February 12, 2017. Admission Reason for Admission: Hypoxia Discharge Discharge Diagnosis / Problem: ACUTE HYPOXIA, Atrial Fibrillation, Hypokalemia Discharge Goals Goal(s): Decrease discomfort, Improve function, Increase independence, Improve disease control Activity Recommendations Activity Limitations: resume your previous activity (gradually as tolerated) . Instructions / Follow-Up Instructions / Follow-Up Follow up with your primary care provider Dr. Cottrell on 02/19 @ 12:15 pm Call your cardiology to schedule a follow up appointment Schedule follow up appointment with pulmonology Dr. Brown [address] [facility], [address], [place] [address] chest high resolution without contrast in 05/09 ( your physician will arrange that for you) Continue oxygen supplement Check BMP in 1 week to monitor kidney function and electrolytes Fall precaution You are starting on Eliquis that is a blood thinner. Medication Instructions: Your condition is typically treated with an anticoagulant. Anticoagulants will thin your blood to help prevent any blood clot or stroke. * You should take her medication exactly as directed. * Never skip a dose. * Never take a double dose. If you miss a dose, take it as soon as you remember. Call your Primary Care doctor if you experience any of the following: * Swelling or Pain in your leg * Sudden, continuous pain deep in a muscle * Pain that worsens when you are active or when you stand still for a long time * Chest Pain * Sudden Shortness of Breath * Rapid or pounding heart beat * Fainting * Dizziness * Cough with blood or bloody sputum * Sweating more than normal * Bruises * Heavy or uncontrolled bleeding * Blood in your urine, stool or vomit * Black or tarry stools Current Hospital Diet Patient's current hospital diet: Low Sodium Diet (2gm Na), AHA Diet (Heart Healthy) Discharge Diet Recommended Diet: AHA Diet (Heart Healthy), Low Sodium Diet (2gm Na) Pending Studies Studies pending at discharge: no Medical Emergencies . Who to Call and When: Medical Emergencies: If at any time you feel your situation is an emergency, please call 911 immediately. . Non-Emergent Contact Non-Emergency issues call your: Primary Care Provider, Film Critic Call Non-Emergent contact if: you have any medication questions . . "Provider Documentation" section prepared by Sunny Lott. . VTE Core Measure Inpt VTE Proph given/why not?: Other Anticoagulation
[2017-02-12] MEDS ORDERED: POTA10TA30 PO (16:26)
--- NOTE | 2017-02-19 00:45 | Discharge Summary ---
Discharge Summary Date of Service February 19, 2017. Discharge Summary Admission Date: February 09, 2017 at 18:07 Discharge Date: February 12, 2017 Discharge Disposition: Home with services Principal Diagnosis: ACUTE HYPOXIA Secondary Diagnoses/Problems: Atrial Fibrillation Hypokalemia LOWER EXTREMITY EDEMA Acute Diastolic CHF HTN H/O MITRAL REGURGITATION H/O BREAST CA GLAUCOMA Procedures: CHEST CTA for PULMONARY ARTERIES CT DOSE: 210.36 mGy.cm HISTORY: Chest pain dyspnea TECHNIQUE: Multiaxial CT images of the chest were performed following the intravenous administration of contrast to evaluate the pulmonary arteries. Maximal intensity projection images were also obtained. COMPARISON STUDY: 10/06/2007. FINDINGS: slight increase in distention of the aortic root to a current maximum dimension of 4.1 cm. This is increased from a prior dimension of 3.9 cm. Enhancement characteristics of the pulmonary arterial vasculature is grossly unremarkable. The vertebral vessels are not well seen. There is no evidence for main or central pulmonary embolus. Patchy parenchymal infiltrative changes are identified at multiple sites within the right upper lobe. Less prominent findings are seen superior segment of the right as well as left lower lobe region area midlung parenchymal infiltrative changes are noted bilaterally with additional right basilar parenchymal infiltrative change. Heart remains moderately enlarged. IMPRESSION: 1. No evidence for pulmonary embolus. 2. Multifocal small parenchymal infiltrates bilaterally. 3. Mild peribronchial prominence and to a minimal degree mucous plugging bilaterally. 4. Dilatation of the aortic root to 4.1 cm. 5. Moderate cardiac megaly. Electronically signed by: Jay Zambrano M.D. 02/09/2017 8:47 PM Dictated Date/Time: 02/09/2017 8:42 PM CHEST CTA for PULMONARY ARTERIES CT DOSE: 210.36 mGy.cm HISTORY: Chest pain dyspnea TECHNIQUE: Multiaxial CT images of the chest were performed following the intravenous administration of contrast to evaluate the pulmonary arteries. Maximal intensity projection images were also obtained. COMPARISON STUDY: 10/06/2007. FINDINGS: slight increase in distention of the aortic root to a current maximum dimension of 4.1 cm. This is increased from a prior dimension of 3.9 cm. Enhancement characteristics of the pulmonary arterial vasculature is grossly unremarkable. The vertebral vessels are not well seen. There is no evidence for main or central pulmonary embolus. Patchy parenchymal infiltrative changes are identified at multiple sites within the right upper lobe. Less prominent findings are seen superior segment of the right as well as left lower lobe region area midlung parenchymal infiltrative changes are noted bilaterally with additional right basilar parenchymal infiltrative change. Heart remains moderately enlarged. IMPRESSION: 1. No evidence for pulmonary embolus. 2. Multifocal small parenchymal infiltrates bilaterally. 3. Mild peribronchial prominence and to a minimal degree mucous plugging bilaterally. 4. Dilatation of the aortic root to 4.1 cm. 5. Moderate cardiac megaly. Electronically signed by: Jay Zambrano M.D. 02/09/2017 8:47 PM Dictated Date/Time: 02/09/2017 8:42 PM Venous Doppler right leg RIGHT VENOUS DOPP LOWER EXT UNILAT CLINICAL HISTORY: EVALUATE FOR DVT Right pain. Edema. TECHNIQUE: Venous Doppler COMPARISON STUDY: None FINDINGS: Normal study IMPRESSION: Normal study Electronically signed by: Jay Zambrano M.D. 02/09/2017 4:22 PM Dictated Date/Time: 02/09/2017 4:22 PM Interpretation Summary * Name: WILI VASQUEZ Study Date: 02/10/2017 07:32 AM BP: 103/60 mmHg * Patient Location: [facility]S\\1 HR: 72 * : 1925 (M/d/yyyy) Gender: Female Height: 61 in * Age: 89 yrs Ethnicity: PR Weight: 109 lb * Ordering Physician: Cathie Jurado * Referring Physician: Self, Referred * Performed By: John Jurado RDCS * * Reason For Study: CHF * BSA: 1.5 m2 * -- Conclusions -- * 1. Small LV cavity size with borderline concentric LVH. Grade II diastolic dysfunction. * 2. Normal LV systolic function. LVEF 60-65%. No regional wall motion abnormalities. * 3. Normal RV size, mild RV dysfunction. * 4. Severely dilated right atrium. * 5. Mild aortic regurgitation. Mild aortic sclerosis without stenosis. * 6. Mild to moderate mitral regurgitation. * 7. Moderate tricuspid regurgitation. * 8. Moderate to severe pulmonary hypertension. Est PASP 55-60 mmHg. Est RA 15 mmHg. * 9. Borderline ascending aorta dilation (3.8 cm). * 10. No prior studies for comparison. Procedure Details * A complete two-dimensional transthoracic echocardiogram was performed (2D, M- mode, Doppler and color flow Doppler). * The study was technically adequate. Left Ventricle * The left ventricular cavity is small. * There is borderline concentric left ventricular hypertrophy. * The basal septum is thickened and angulated consistent with sigmoid septum. * Ejection Fraction = 60-65%. * No regional wall motion abnormalities noted. Right Ventricle * The right ventricle is grossly normal size. * The right ventricular systolic function is mildly reduced. Atria * The left atrial size is normal. * The right atrium is severely dilated. * No ASD detected; PFO is not assessed. Mitral Valve * There is moderate mitral annular calcification. * The mitral valve leaflets appear thickened, but open well. * There is no mitral valve stenosis. * There is mild to moderate mitral regurgitation. Tricuspid Valve * The tricuspid valve is not well visualized, but is grossly normal. * There is no tricuspid stenosis. * There is moderate tricuspid regurgitation. * Right ventricular systolic pressure is elevated at 50-60mmHg. Aortic Valve * Aortic valve sclerosis mild, without significant aortic valvular stenosis. * The aortic valve is tricuspid. The leaflet thickness if normal. There is no aortic stenosis, and no significant insufficiency. * No hemodynamically significant valvular aortic stenosis. * Mild aortic regurgitation. Pulmonic Valve * The pulmonic valve is not well seen, but is grossly normal. * Pulmonic stenosis is absent. * Trace pulmonic valvular regurgitation. Great Vessels * Borderline dilated ascending aorta. Pericardium/Pleural * There is no pericardial effusion. * Small left pleural effusion. Great Vessels * Dilated inferior vena cava with reduced collapsability with sniff indicates an elevated right atrial pressure of 15 mmHg Left Ventricular Diastolic Function * Diastolic dysfunction, Grade II, consistent with elevated left atrial pressure. Consultations: Cardiology Medication Reconciliation New Medications: Potassium Chloride (Potassium Chloride Cr) 10 Meq Tab 10 MEQ PO DAILY for 30 Days, #30 TAB Apixaban (Eliquis) 2.5 Mg Tab 2.5 MG PO BID for 30 Days, #60 TAB Furosemide (Lasix) 20 Mg Tab 1 TAB PO DAILY for 30 Days, #30 TAB 1 Refill Levofloxacin (Levofloxacin) 750 Mg Tab 750 MG PO Q2D@11, #2 TAB Next dose 02/14, then 02/16 Metoprolol Succinate (Metoprolol Succinate ER) 50 Mg Tabcr 100 MG PO QAM for 30 Days Continued Medications: Ascorbic Acid (Ascorbic Acid) 500 Mg Tab 500 MG PO DAILY, TAB Aspirin (Aspirin Ec) 81 Mg Tab 81 MG PO DAILY Bromfenac Sodium (Ophth) (Prolensa) 0.07 % Shaniqua 1 DROP OPR DAILY Calcium Carbonate (Calcium) 600 Mg Tab 600 MG PO DAILY Cholecalciferol (Vitamin D3) 1,000 Unit Tab 1000 UNITS PO DAILY for 30 Days, #30 TAB 5 Refills Fish Oil (Erie-3) 1 Ea Cap 1200 MG PO DAILY, CAP Olmesartan Medoxomil (Benicar) 40 Mg Tab 1 TAB PO DAILY, #30 Prednisolone Acetate (Ophth) (Prednisolone Acetate) 1 % Rocio 1 DROP OPR QID for 10 Days, BTL EACH EYE Sodium Chloride Hypertonic (Michelle 128) 2 % Shaniqua Sodium Chloride Oph (Michelle 128 Oph) Oint 1 APPLN OPR QID Timolol Maleate (Timolol Gfs 0.5% (Generic For Timoptic-Xe)) 74 Drops/5 Ml Soln 1 DROP OPB BID 0.25% Travoprost (Travatan Z) 0.004 % Aleks 1 DROPS OPL HS PRN for Pain, #1 BTL 5 Refills Discontinued Medications: Atenolol (Tenormin) 25 Mg Tab 25 MG PO TID Hydrochlorothiazide (Hydrochlorothiazide) 12.5 Mg Tab 2 TAB PO DAILY for 90 Days, #180 TAB 3 Refills Admission Information HPI (per Admitting provider): Patient seen and examined. 89 year old female with PMHx of HTN, GERD, SVT, Mitral Regurgitation, peripheral edema, and h/o breast CA presents to the ED complaining of worsening leg edema x 1 week. Patient reports she chronically has some edema to her BLE, but it has recently gotten worsen. She saw Dr. Flores at [facility] weekend coverage today and he was concerned that the RLE was 4mm larger than the left. With her history of breast CA he was concerned for DVT and referred patient to the ED for further evaluation. Patient also reports a cough with some phlegm. She states she feels a little bloated and has had some nausea off and on. She states she chronically has some hear "fluttering " at night and that is what she takes atenolol for. She denies fevers, chills, chest pain, SOB, vomiting, diarrhea, dysuria, calf pain . She follows with Manuel Marin of cardiology. She does not use oxygen at home. She has never been diagnosed with CHF. In the ED patient is hypoxic on RA. RLE dopper US is negative for DVT. BNP is 3611. CXR is without acute changes. She is placed on supplemental oxygen and received 40mg IV lasix. She is resting comfortably. She will be admitted for further workup and treatment. Physical Exam (per Admitting): General Appearance: + pertinent finding (Very pleasant elderly frail appearing 89 year old female lying in bed in NAD ) Head: normocephalic, atraumatic Eyes: PERRL, EOMI, sclerae normal ENT: pharynx normal, + pertinent finding (hard of hearing ) Neck: supple, no JVD Respiratory/Chest: chest non-tender, lungs clear, normal breath sounds, no respiratory distress, no accessory muscle use Cardiovascular: regular rate, rhythm, no gallop, no JVD, normal peripheral pulses, + systolic murmur Abdomen/GI: normal bowel sounds, non tender, soft Back: normal inspection, no muscle spasm Extremities/Musculoskelatal: no calf tenderness, normal capillary refill, + pedal edema (+1, RLE slightly > LLE ) Neurologic/Psych: alert, oriented x 3 Skin: normal color, warm/dry, no rash Lymphatic: no adenopathy Hospital Course ACUTE HYPOXIA - Possible related to left sided CHF vs Pneumonia - CXR showed Mild stable cardiomegaly. - BNP elevated on admission - CTA chest negative for PE. Multifocal pulmonary nodules and infiltrates - Continue lasix 40mg daily - Follow up with high resolution CT chest in 3 months (05/09). - Continue oxygen supplement - Continue levaquin to complete 7 days course - overnight pulse oximetry done and 2 step done. - Pt will require oxygen supplement upon discharge - appeals manager will arrange for the oxygen - Clinically improved ECHO showed * 1. Small LV cavity size with borderline concentric LVH. Grade II diastolic dysfunction. * 2. Normal LV systolic function. LVEF 60-65%. No regional wall motion abnormalities. * 3. Normal RV size, mild RV dysfunction. * 4. Severely dilated right atrium. * 5. Mild aortic regurgitation. Mild aortic sclerosis without stenosis. * 6. Mild to moderate mitral regurgitation. * 7. Moderate tricuspid regurgitation. * 8. Moderate to severe pulmonary hypertension. Est PASP 55-60 mmHg. Est RA 15 mmHg. * 9. Borderline ascending aorta dilation (3.8 cm). HYPOKALEMIA -K 3.4 -K replaced -monitor BMP LOWER EXTREMITY EDEMA - Ddimer elevated on admission - RLE Doppler US negative for DVT - Swelling improved with Lasix ACUTE DIASTOLIC CHF -continue lasix, metoprolol -stable AFIB - EKG with Afib - Rate controlled - Last EKG was in 08/07 as per Cardiology, that was sinus rhythm - Cannot determine the duration. - Cardiology recommended that she should be anticoagulated, despite her age - continue eliquis 2.5 mg. No signs of bleeding - Atenolol changed to metoprolol ER - Consider elective electrical cardioversion of atrial fibrillation in 1 month if she does not convert to NSR H/O SVT - follows with Manuel Tomas - Rate is controlled - Atenolol changed to metoprolol succ. ER HTN - On BB, Benicar and lasix -BP was in the low side this morning, will decrease metoprolol to 50mg daily H/O MITRAL REGURGITATION H/O BREAST CA - 1997, s/p mastectomy GLAUCOMA - continue eye drops DVT PROPHYLAXIS: Eliquis CODE STATUS: FULL CODE Total time spent on discharge = 35 minutes This includes examination of the patient, discharge planning, medication reconciliation, and communication with other providers. Discharge Instructions Discharge Instructions Date of Service February 12, 2017. Admission Reason for Admission: Hypoxia Discharge Discharge Diagnosis / Problem: ACUTE HYPOXIA, Atrial Fibrillation, Hypokalemia Discharge Goals Goal(s): Decrease discomfort, Improve function, Increase independence, Improve disease control Activity Recommendations Activity Limitations: resume your previous activity (gradually as tolerated) . Instructions / Follow-Up Instructions / Follow-Up Follow up with your primary care provider Dr. Cottrell on 02/19 @ 12:15 pm Call your cardiology to schedule a follow up appointment Schedule follow up appointment with pulmonology Dr. Brown [address], [address], [place] [address] chest high resolution without contrast in 05/09 ( your physician will arrange that for you) Continue oxygen supplement Check BMP in 1 week to monitor kidney function and electrolytes Fall precaution You are starting on Eliquis that is a blood thinner. Medication Instructions: Your condition is typically treated with an anticoagulant. Anticoagulants will thin your blood to help prevent any blood clot or stroke. * You should take her medication exactly as directed. * Never skip a dose. * Never take a double dose. If you miss a dose, take it as soon as you remember. Call your Primary Care doctor if you experience any of the following: * Swelling or Pain in your leg * Sudden, continuous pain deep in a muscle * Pain that worsens when you are active or when you stand still for a long time * Chest Pain * Sudden Shortness of Breath * Rapid or pounding heart beat * Fainting * Dizziness * Cough with blood or bloody sputum * Sweating more than normal * Bruises * Heavy or uncontrolled bleeding * Blood in your urine, stool or vomit * Black or tarry stools Current Hospital Diet Patient's current hospital diet: Low Sodium Diet (2gm Na), AHA Diet (Heart Healthy) Discharge Diet Recommended Diet: AHA Diet (Heart Healthy), Low Sodium Diet (2gm Na) Pending Studies Studies pending at discharge: no Medical Emergencies . Who to Call and When: Medical Emergencies: If at any time you feel your situation is an emergency, please call 911 immediately. . Non-Emergent Contact Non-Emergency issues call your: Primary Care Provider, Glove Machine Operator Call Non-Emergent contact if: you have any medication questions . . "Provider Documentation" section prepared by Sunny Lott. . VTE Core Measure Inpt VTE Proph given/why not?: Other Anticoagulation Additional Copies To Maya Cottrell,DO
[2017-03-11] MEDS ORDERED: RIVA1TAB PO (07:08)
[2017-03-11] MEDS ORDERED: OXGN (07:24)
[2017-08-21] MEDS ORDERED: BROM0.07 OPB (21:03)
[2017-08-21] MEDS ORDERED: B-COTAB18 PO (21:03)
[2017-08-21] MEDS ORDERED: VTMD400 PO (21:03)
[2017-08-21] MEDS ORDERED: MULT-663 PO (21:03)
[2017-08-21] MEDS ORDERED: POLYSOL OPL (21:03)
[2017-08-21] MEDS ORDERED: TPRSR100 PO (21:03)
[2017-08-21] MEDS ORDERED: ASCA500 PO (21:03)
[2017-08-21] MEDS ORDERED: SODI5SOL4 OPR (21:03)
[2017-08-21] MEDS ORDERED: RIVA1.5T PO (21:03)
[2017-08-21] MEDS ORDERED: PRED1SUS3 OPR (21:03)
[2017-08-21] MEDS ORDERED: TRAV0.00 OPL (21:03)
[2017-08-21] MEDS ORDERED: LSX/40 PO (21:03)
[2017-08-21] MEDS ORDERED: LEVA1.255 INH (21:03)
[2017-08-21] MEDS ORDERED: POTA10CA28 PO (21:03)
[2017-08-21] MEDS ORDERED: OMEG120013 PO (21:03)
[2017-08-26] MEDS ORDERED: PRED10TA PO (17:31)
[2017-08-26] MEDS ORDERED: LXP10 PO (17:31)
[2017-08-26] MEDS ORDERED: LSX40 PO (17:31)
[2017-08-26] MEDS ORDERED: LEVO-18 PO (17:31)
== END 2017-02-12 17:30 | disposition home health service (06) | DRG 291 ==
LOC: ENRESERVTM → ENRESERVDT → C.EDB 15:28 → C.2T 18:07
PROVIDERS: ADMIT Hospitalist; ATTEND Internal Medicine
DX: I50.31 Acute diastolic (congestive) heart failure (principal); J18.9 Pneumonia, unspecified organism; I11.0 Hypertensive heart disease with heart failure; R09.02 Hypoxemia; I48.91 Unspecified atrial fibrillation; E87.6 Hypokalemia; R79.89 Other specified abnormal findings of blood chemistry; R60.9 Edema, unspecified; I08.3 Combined rheumatic disorders of mitral, aortic and tricuspid valves; H40.9 Unspecified glaucoma; J45.909 Unspecified asthma, uncomplicated; J84.10 Pulmonary fibrosis, unspecified; R91.8 Other nonspecific abnormal finding of lung field; Z85.3 Personal history of malignant neoplasm of breast; Z87.19 Personal history of other diseases of the digestive system; Z87.891 Personal history of nicotine dependence; Z86.79 Personal history of other diseases of the circulatory system; Z79.82 Long term (current) use of aspirin; Z79.899 Other long term (current) drug therapy

== ENCOUNTER → 2017-03-11 | Day surgery (SDC) | payer OTHER, BC ==
[~2017-03-11] VITALS: Ht 162.6 cm; Wt 50.4 kg
[~2017-03-11] MED LIST changes: +ASCA500 PO; -ATEN-173 PO; +ATROPINE SULFATE 0.1 MG/ML 5ML SYR IV PRN; +B-COTAB18 PO; +BROM0.07 OPB; +CALC-393 PO; -CALCTAB5 PO; +ELQ25 PO; +EpHEDrine SULFATE INJ 50 MG/ML AMP IV PRN; +FURO20TA PO; -HYDR12.56 PO; +LEVA1.255 INH; +LEVO-18 PO; +LSX/40 PO; +LSX40 PO; +LVQ750 PO; +LXP10 PO; +MULT-663 PO; +OMEG120013 PO; +OXGN; +POLYSOL OPL; +POTA10CA28 PO; +POTA10TA30 PO; +PRED10TA PO; +PRED1SUS17 OPR; +PRED1SUS3 OPR; +PROPOFOL IV EMULSION 10 MG/ML 20 ML VIAL IV ONE; +RIVA1.5T PO; +RIVA1TAB PO; +SODI2SOL; +SODI5SOL4 OPR; -TIMO0.2527 OPB; +TMPXEOPS OPB; +TPRSR100 PO; +TPRSR50 PO; +TRAV0.00 OPL; +VTMD400 PO
[2017-03-11 07:12] VITALS: BP 139/76; PULSE 79; TEMP 36.6; O2SAT 97; Ht 162.6 cm; Wt 50.4 kg
--- NOTE | 2017-03-11 07:29 | History & Physical Bridge Note ---
H&P Re-Evaluation Bridge Note: I have examined the patient, reviewed the History & Physical and in the interval since the performance of the History & Physical I have noted the following changes of clinical significance: Still in AF. Risks explained. Signed for patient with witness after R/B/A discussed as she has glaucoma and could not sign
[2017-03-11 07:32] VITALS: BP 142/78; PULSE 80
[2017-03-11 07:37] VITALS: BP 138/71; PULSE 84; O2SAT 99
[2017-03-11 07:43] VITALS: BP 101/66; PULSE 84; O2SAT 97
--- NOTE | 2017-03-11 08:28 | Anesthesiology Progress Note ---
Anesthesia Post Op Note Date & Time Mar 11, 2017 at 08:27 Vital Signs Pain Intensity: 0 Vital Signs Past 12 Hours Date Time Temp Pulse Resp B/P (MAP) Pulse Ox O2 Delivery O2 Flow Rate FiO2 03/11/17 08:15 74 16 107/58 (74) 95 Nasal Cannula 2 03/11/17 08:05 77 16 101/56 (71) 95 Nasal Cannula 2 03/11/17 07:55 79 16 93/48 (63) 95 Nasal Cannula 2 03/11/17 07:45 81 16 93/43 (60) 95 Nasal Cannula 2 03/11/17 07:43 84 16 101/66 97 Nasal Cannula 2 03/11/17 07:37 84 16 138/71 99 Nasal Cannula 2 03/11/17 07:32 80 142/78 03/11/17 07:12 36.6 79 16 139/76 97 Room Air Notes Mental Status: alert / awake / arousable, participated in evaluation Pt Amnestic to Procedure: Yes Nausea / Vomiting: adequately controlled Pain: adequately controlled Airway Patency, RR, SpO2: stable & adequate BP & HR: stable & adequate Hydration State: stable & adequate Anesthetic Complications: no major complications apparent
--- NOTE | 2017-03-11 08:46 | Discharge Instructions ---
Discharge Instructions Procedure Procedure Date: Mar 11, 2017. Reason for Visit: Dr Kapoor To Do Afib, Anes Ok'd. Discharge Discharge Date: Mar 11, 2017. Discharge Diagnosis: atrial fibrillation Last Recorded Wt (Kilograms): 50.4 Medications Stopped Medication(s): none Anesthesia Post Anesthesia Instructions: If you have had General Anesthesia or IV Sedation: * Do not drive today. * Resume driving when surgeon permits. * Do not make important decisions or sign legal documents today. * Call surgeon for: 1. Temperature elevations greater than 101 degrees F. 2. Uncontrollable pain. 3. Excessive bleeding. 4. Persistent nausea and vomiting. 5. Medication intolerance (nausea, vomiting or rash). * For nausea and vomiting use only clear liquids such as: tea, soda, bouillon until nausea subsides, then gradually increase diet as tolerated. * If you have any concerns or questions, call your surgeon's office. If physician is unavailable and it is an emergency, call 911 or go to the nearest emergency room. Instructions Activity Recommendations: driving or machine use limit Return to School/Work: with the following limitations Recommended Home Diet: resume previous diet, low sodium Allergies: Coded Allergies: Penicillins (Verified Allergy, Unknown, 05/20/16) Provider Instructions No driving for 24 hours Follow Up Magdi King Recommendations: Call your doctor if: * Temperature above 101 degrees * Pain not relieved by pain medicine ordered * There is increased drainage or redness from any incision * You have any unanswered questions or concerns. Your Doctors Instructions noted above were prepared by provider Fausto Kapoor. Patient Signature Section: Patient Instructions Signature Page Charla Hernandes Patient (or Guardian) Signature/Date: I have read and understand the instructions given to me by my caregivers. Caregiver/RN/Doctor Signature/Date: The above-named patient and/or guardian has received patient instructions on this date. + Original Patient Signature Page (only) stays with chart. Please make copy for patient.
[2017-03-11 09:00] VITALS: BP 110/60; PULSE 70; O2SAT 95
--- NOTE | 2017-03-11 09:00 | CARDIOVERSION ---
DATE OF OPERATION: 03/11/2017 PROCEDURE PERFORMED: 1. Electrocardioversion. STAFF [employer]WYER: Dr. Landon Kapoor. INDICATIONS: Mrs. Charla Hernandes is an 89-year-old woman, who was recently admitting to [facility] with new onset of atrial fibrillation. Based on the persistent nature of her arrhythmia and symptoms, she was advised to consider cardioversion. The patient has been on anticoagulation for appropriate amount of time. PROCEDURE IN DETAIL: The patient was informed of the risks, benefits and alternatives to the intended procedure. She understood such risk to proceed. She was taken to the holding area of the cardiac catheterization suite in a fasting state. A general anesthetic was administered by the anesthesiology service. Once appropriately anesthetized, the patient underwent cardioversion with 300 joules delivered in a biphasic fashion. This returned the patient to a sinus rhythm with frequent PACs. Subsequent to the procedure, the patient was noted to be neurologic intact. There were no immediate complications. IMPRESSION: 1. Successful cardioversion from atrial fibrillation to sinus rhythm with frequent premature atrial contractions. I attest to the content of the Intraoperative Record and any orders documented therein. Any exception s are noted below.
== END | disposition home or self-care (01) ==
LOC: C.CATH 06:47
PROVIDERS: ATTEND Internal Medicine Clinical Cardiac Electrophysiology
DX: I48.91 Unspecified atrial fibrillation (principal); Z88.0 Allergy status to penicillin